=== PATIENT | female | born 1945 | race Caucasian/White ===

== ENCOUNTER 2020-11-02 16:13 | Inpatient (IN) | payer MEDICARE, SELFPAY ==
[2020-11-02 16:15] VITALS: BP 167/88; PULSE 80; RESP 18; TEMP 37.1; O2SAT 95; BMI 24.3
--- NOTE | 2020-11-02 16:22 | EKG12_ITS ---
Test Reason : FALL Blood Pressure : / mmHG Vent. Rate : 071 BPM Atrial Rate : 071 BPM P-R Int : 106 ms QRS Dur : 080 ms QT Int : 432 ms P-R-T Axes : 035 005 027 degrees QTc Int : 469 ms Sinus rhythm with short HI Otherwise normal ECG Confirmed by ANGEL PRICE, NEIL ([id number]), medical transcription editor SERGIO FONTANA ([id number]) on 11/03/2020 1:07:11 PM Referred By: [id number] Confirmed By:NEIL ORTIZ MD
[2020-11-02] MEDS: Ondansetron 4 MG/2 ML Vial IV (16:28)
[2020-11-02] MEDS: HYDROmorphone 1 MG/ML Syringe 0.5 MG IV (16:29)
[2020-11-02] MEDS: 0.9% Normal Saline 1,000 ML 150 ML IV (16:29)
--- NOTE | 2020-11-02 16:31 | ED.VIS.INJ ---
History of Present Illness Chief Complaint: Fall Informant: Patient, Coat Check Attendant Onset: Hours Mechanism/Context: Blunt Injury, Fall, Trip Quality of Pain: Dull, Aching Location: Right groin Current Severity: Mild Maximum Severity: Severe Worsened by: Movement by paramedics or attempt to move left lower extremity Relieved by: Nothing Associated Symptoms: Loss of function, Inability to ambulate. Negative for: Parasthesias, Weakness, Loss of consciousness, Amnesia Narrative: An elderly woman who tripped. She landed on her right side. She complains of right hip pain which she localized to the right groin. She states she bumped her head. She had no loss of conscious. She is not amnestic. She states she was not dazed. She is not on an anticoagulant. Denies double vision, blurred vision or loss of vision. Denies ringing or ears or decreased hearing. Denies blood from her ears. Denies blood from her nose. She denies her teeth not lining up. She denies neck pain. Denies paresthesia, anesthesia motor weakness upper or lower extremity presently her time of the fall. She denies cardiac respiratory symptoms. Denies black or maroon-colored stool. She denies urologic symptoms. Last tetanus is uncertain. Prior similar symptoms: No Recent Illness/Hospitalization: No - Past Medical History (1) History of type 2 diabetes mellitus Status: Acute (2) History of arthritis Status: Acute Past Medical History - Allergies and Home Meds Allergies/Adverse Reactions: Allergies midazolam [From Versed] Allergy (Verified 11/02/20 16:15) Other Penicillins [PCN] Allergy (Verified 11/02/20 16:15) Hives Primary Care Physician: NOT,DEFINED [NON-STAFF] - Prior records reviewed: No Surgical History: noncontributory Lives: Spouse/ Significant Other Smoking Status: Never smoker Alcohol: None Drugs: None Review of Systems General: Denies: Chills, Fever, Malaise, Subjective, Sweats Eyes: Denies: Visual changes - bilaterally, Blurred Vision - bilaterally, Diplopia ENT: Denies: Bilateral ear pain, Rhinorrhea, Sore throat Cardiovascular: Denies: Chest pain, Palpitations Respiratory: Denies: Dyspnea, Cough, Dyspnea on exertion, Orthopnea, Paroxysmal nocturnal dyspnea Gastrointestinal: Denies: Abdominal pain, Nausea, Vomiting, Melena, Hematochezia Genitourinary: Denies: Dysuria, Hematuria, Frequency Musculoskeletal: Reports: Extremity Pain. Denies: Myalgias, Arthralgias, Neck pain, Back pain, Swelling Skin: Denies: Rash, Wounds Neurological: Denies: Headache, Weakness, Parasthesia Endocrine: Denies: Polyuria, Polydipsia Hematologic: Denies: Easy bruising Physical Exam Vital Signs/Narrative: Vital Signs Temp Pulse Resp BP Pulse Ox 11/02/20 16:15 98.8 F 80 18 167/88 H 95 Inital Vital Signs reviewed: Yes General: Well nourished, Well developed Head: Normocephalic, Atraumatic, - - There is no clinical findings of basilar skull fracture.. Negative for: Trauma, Tenderness Eyes: Perrl, EOMI, - - There is no subconjunctival hemorrhage.. Negative for: Pale conjunctiva, Scleral icterus ENT: TM's clear, No hemotympanum or drainage, No trauma. Negative for: Hemotympanum, Otorrhea, Nasal trauma, Nasal septal hematoma Neck: Nontender, Full ROM. Negative for: Spinal Tenderness, Paraspinal Tenderness Cardiovascular: Regular rate, Regular rhythm, No murmurs, Normal S1, Normal S2 Respiratory: No distress, CTA bilaterally, Chest nontender Abdomen: Soft, Nontender, Nondistended, Normal bowel sounds Rectal: Deferred Back: Nontender. Negative for: CVA Tenderness - Right, CVA Tenderness - Left Skin: Normal color, No rash. Negative for: Cyanosis, Diaphoresis, Jaundice Neurological: Alert, Oriented x3, Cranial nerves II-XII grossly intact, Normal Strength, Normal Sensation. Negative for: Normal Gait Psychological: Normal affect - Glascow Coma Scale Eye Opening: Spontaneous Motor: Obeys Commands Verbal: Oriented Coma Scale Total: 15 Diagnostic/Tx/Re-eval Chest X-Ray - ED: Read by ED Physician, - - Single portable chest x-ray reveals chronic changes. There is slight rotation. Cardiac silhouette is normal. There is no effusion, hemothorax, pneumothorax or fractured ribs. Three-view x-ray of the hip interpreted by me reveals an intertrochanteric fracture that is minimally displaced. Impressions Chest X-Ray 11/02/20 16:46 IMPRESSION: Chronic interstitial changes, no superimposed acute pulmonary process Electronically Signed: Evangelista Thomas MD at 17:14 EDT , Service support , Hip/Pelvis X-Ray 11/02/20 16:46 IMPRESSION: Acute, minimally displaced intertrochanteric fracture of the right femur. Orthopedic surgery consultation recommended Electronically Signed: Evangelista Thomas MD at 17:15 EDT , Service support , 11/02/20 16:46 Chest 1 View (Portable) [RAD] Stat HIP, UNI W/ Pelvis 2-3 Views [RAD] Stat Laboratory Results 11/02/20 11/02/20 16:15 Unknown WBC 9.6 RBC 4.84 Hgb 15.8 H Hct 44.3 MCV 91.5 MCH 32.6 H MCHC 35.7 RDW Std Deviation 40.1 RDW Coeff of Melissa 11.9 Plt Count 214 MPV 11.0 Immature Gran % (Auto) 0.600 Neut % (Auto) 70.2 H Lymph % (Auto) 19.0 [place] % (Auto) 6.9 Eos % (Auto) 2.6 Baso % (Auto) 0.7 Absolute Neuts (auto) 6.7 Absolute Lymphs (auto) 1.82 Nucleated RBC % 0 Sodium 133 L Potassium 3.9 Chloride 98 Carbon Dioxide 28.0 Anion Gap 7 BUN 18 Creatinine 0.72 Estim Creat Clear Calc 38.94 Est GFR (MDRD) Af Amer 103 Est GFR (MDRD) Non-Af 85 BUN/Creatinine Ratio 25.2 H Glucose 438 H Calcium 9.4 - EKG Initial EKG Interpretation: Sinus Rhythm - Rhythm with a ventricular rate of 71. [place] interval is 106 ms which is short. QRS duration 80 ms. QT duration 432 ms. [place] is normal. Other than the short [place] interval the EKG is normal. - Medical Decision Making Medically patient has a right hip fracture. Blood work was obtained to rule out anemia, renal dysfunction and to assess glucose and anion gap. EKG was obtained as well as chest x-ray for preoperative clearance. Patient was informed she will require admission to the hospital. Blood sugar is elevated. Will treat with insulin. Hospitalist and orthopedist on-call were paged for admission. ED Disposition - Plan for ED Patient: Disposition: Acute Care [facility] Diagnosis: Intertrochanteric fracture of right femur, Hyperglycemia due to type 2 diabetes mellitus Referrals: NOT,DEFINED [NON-STAFF] -
--- NOTE | 2020-11-02 16:46 | RAD_ITS ---
STUDY: X-RAY - PELVIS AND RIGHT HIP REASON FOR EXAM: Female, 75 years old. Injury/Pain TECHNIQUE: 4 views of the pelvis and hip. COMPARISON: None. FINDINGS: There is a non-specific bowel gas pattern. Normal visualized soft tissue structures. There is narrowing with cortical sclerosis and osteophyte formation of the sacroiliac joint consistent with degenerative osteoarthritic changes. Normal bilateral superior and inferior pubic rami. Normal pubic symphysis. Normal bilateral ischial tuberosities. There is an acute, minimally displaced, intertrochanteric fracture of the right femur with medial displacement of the lesser trochanter. No dislocation or subluxation of the right hip joint. No significant angulation. Age consistent left hip arthrosis without demonstrated left hip fracture No demonstrated pelvic fracture RAD/HIP, UNI W/ Pelvis 2-3 Views IMPRESSION: Acute, minimally displaced intertrochanteric fracture of the right femur. Orthopedic surgery consultation recommended Electronically Signed: Evangelista Thomas MD at 17:15 EDT , Service support ,
--- NOTE | 2020-11-02 16:46 | RAD_ITS ---
STUDY: X-RAY CHEST REASON FOR EXAM: Female, 75 years old. Pre-op for pelvic surgery TECHNIQUE: Single AP portable view of the chest. COMPARISON: None. FINDINGS: There are interstitial changes of the lungs. There is no demonstrated pleural abnormality. Normal size heart. Normal mediastinum and jamil. Normal visualized pulmonary arteries. Normal visualized aortic arch and descending thoracic aorta. There are diffuse degenerative changes of the visualized thoracic spine. Normal visualized ribs, clavicles, and shoulders. There is no demonstrated abnormality of the visualized soft tissue structures of the upper abdomen. RAD/Chest 1 View (Portable) IMPRESSION: Chronic interstitial changes, no superimposed acute pulmonary process Electronically Signed: Evangelista Thomas MD at 17:14 EDT , Service support ,
[2020-11-02 16:59] LABS: Anion Gap 7 (5-15); BUN 18 mg/dL (7-18); BUN/Creat Ratio 25.2 RATIO (10-20); Calcium,Total 9.4 mg/dL (8.5-10.1); Chloride 98 mmol/L (98-107); Creatinine, Serum 0.72 mg/dL (0.55-1.02); EST Glomerular Filtration Rate 85 mL/min (>60); Est Glom Filt Rate - Afr Amer 103 mL/min (>60); Estimated Creatinine Clearance 38.94 ml/min; Glucose 438 mg/dL (74-106); Potassium 3.9 mmol/L (3.5-5.1); Sodium Level 133 mmol/L (136-145)
[2020-11-02 17:02] LABS: Absolute Lymphocyte Count 1.82 X10^3/uL (0.83-4.51); Absolute Neutrophil Count 6.7 X10^3/uL (2.0-7.7); Basophil# 0.07 X10^3/uL; Basophil% 0.7 % (0-1); Eosinophil# 0.25 X10^3/uL; Eosinophils% 2.6 % (0-5); Hematocrit 44.3 % (37-47); Hemoglobin 15.8 g/dL (12.0-15.0); Lymphocyte # 1.82 X10^3/ul (4.0); Mean Corp Hgb Conc 35.7 g/dL (32-36); Mean Corpuscular Hgb 32.6 pg (27.0-32.0); Mean Corpuscular Volume 91.5 fL (81-99); Monocyte# 0.66 X10^3/uL; Monocyte% 6.9 % (0-10); NRBC Flagged by Analyzer 0 % (0-5); Neutrophil # 6.72 X10^3/uL (2.7-7.7); Neutrophil % 70.2 % (47-70); Platelet Count 214 K/mm3 (150-450); RBC Distribution Width CV 11.9 % (11.6-14.6); RBC Distribution Width SD 40.1 fl (35.1-43.9); Red Blood Count 4.84 M/mm3 (4.2-5.4); White Blood Count 9.6 K/mm3 (4.4-11.0)
[2020-11-02] MEDS: Insulin Lispro 100 UNIT/ML INSULN.PEN 8 UNIT SC (17:44)
--- NOTE | 2020-11-02 17:44 | NURSING ---
NO OLD EKGS
--- NOTE | 2020-11-02 17:46 | NURSING ---
MED SURG MARVIN RT INTERTROCHANTERIC FX, HYPERGLYCEMIA
[2020-11-02 17:56] VITALS: BP 146/80; PULSE 76; RESP 20; TEMP 36.4; O2SAT 95
--- NOTE | 2020-11-02 17:59 | PCM.HP.STD ---
<Komal Kim - Last Filed: 11/02/20 17:59> Problem List (1) Intertrochanteric fracture of right femur Status: Acute (2) Hyperglycemia due to type 2 diabetes mellitus Status: Chronic (3) History of arthritis Status: Acute History of Present Illness Date of Admission: 11/02/20 Chief Complaint: Right intertrochanter fracture The patient is a 75 year old F who presents today following a fall. Patient states that she was walking into the restroom at a store and turned to close the door and tripped over her own feet and fell. Patient states she believes that she hit her head on the wall however there are no abnormalities noted to scalp. Patient states she did not lose consciousness was not dizzy or lightheaded. Patient has a medical history of arthritis and uncontrolled diabetes mellitus type 2. Patient states that she was prescribed Metformin for her diabetes however it upsets her stomach and so she has not been taking it. Glucose 438 on arrival to ER. Labs otherwise unremarkable. Chest x-ray no acute findings, hip pelvis x-ray shows acute minimally displaced intertrochanteric fracture of the right femur. Past Medical History Past Medical History (Chronic Problems): Chronic Problems Type 2 diabetes mellitus (Chronic) Arthritis (Chronic) Allergies midazolam [From Versed] Allergy (Verified 11/02/20 16:15) Other Penicillins [PCN] Allergy (Verified 11/02/20 16:15) Hives Home Medications: Ambulatory Orders Medication Instructions Recorded Acetaminophen [Tylenol Extra 1,000 mg PO Q6H PRN PRN 11/02/20 Strength] Aspirin E.C. [Ecotrin] 81 mg PO DAILY@0800 11/02/20 Celecoxib [Celebrex] 200 mg PO DAILY PRN 11/02/20 Surgical History: cholecystectomy, hysterectomy, - - Bladder suspension Psychiatric History: No pertinent psych hx ARTISTIC DIRECTOR History: No pertinent ARTISTIC DIRECTOR history Lives: Spouse/ Significant Other Smoking Status: Never smoker Alcohol: None Drugs: None - *Family History Maternal History Items: Heart Disease, Hypertension Paternal History Items: Heart Disease, Hypertension Review of Systems Constitutional: Denies: Chills, Fever, Weight Change HEENT: Denies: Head Aches, Sinus Congestion, Sinus Drainage Cardiovascular: Denies: Chest Pain, Palpitations Respiratory: Denies: Cough, Shortness of breath at rest, Sputum production Gastrointestinal: Denies: Abdominal Pain, Nausea, Vomiting Genitourinary: Denies: Dysuria Musculoskeletal: Reports: Joint Pain, Joint Tenderness Skin: Denies: Rash, Wounds Neurological: Denies: Numbness, Tingling, Focal weakness Psychiatric: Denies: Anxiety, Depression, Homicidal Ideations, Suicidal Ideations Hematologic/ Lymphatic: Denies: Easy Bruising, Easy Bleeding VTE Information - Inpt Only VTE Present on Admission: No VTE Mechan Device Prophylaxis: SCD's VTE Pharm Prophylaxis ordered?: No - Physical Exam Vitals/I&O's: Vital Signs Temp Pulse Resp BP Pulse Ox 97.6 F L 76 20 H 146/80 H 95 11/02/20 17:56 11/02/20 17:56 11/02/20 17:56 11/02/20 17:56 11/02/20 17:56 Oxygen Delivery Method Room Air Weight: 108 lb 8.725 oz Body Mass Index (BMI) 24.3 General: Alert, Oriented x3, Cooperative HEENT: Atraumatic, PERRLA, EOMI, Normocephalic Neck: Supple, No JVD, Negative Carotid Bruits Lungs: Clear to auscultation, Normal air movement Cardiovascular: Regular rate, Regular Rhythm, Normal S1, Normal S2, No murmurs Abdomen: Bowel Sounds Present, Soft, Non Tender Extremities: Capillary Refill Less than 3 Seconds, Edema, Peripheral Pulses Normal, - - Right leg noted to be externally rotated Skin: No rashes, No breakdown Musculoskeletal: Tenderness - To right hip and leg Neurological: Cranial nerves II-XII grossly intact Psych/Mental Status: Normal Affect, Appropriate Laboratory Results 11/02/20 16:10: Blood Type Pending, Antibody Screen Pending 11/02/20 16:15: WBC 9.6, RBC 4.84, Hgb 15.8 H, Hct 44.3, MCV 91.5, MCH 32.6 H, MCHC 35.7, RDW Std Deviation 40.1, RDW Coeff of Melissa 11.9, Plt Count 214, MPV 11.0, Immature Gran % (Auto) 0.600, Neut % (Auto) 70.2 H, Lymph % (Auto) 19.0, [place] % (Auto) 6.9, Eos % (Auto) 2.6, Baso % (Auto) 0.7, Absolute Neuts (auto) 6.7, Absolute Lymphs (auto) 1.82, Nucleated RBC % 0 11/02/20 : Sodium 133 L, Potassium 3.9, Chloride 98, Carbon Dioxide 28.0, Anion Gap 7, BUN 18, Creatinine 0.72, Estim Creat Clear Calc 38.94, Est GFR (MDRD) Af Amer 103, Est GFR (MDRD) Non-Af 85, BUN/Creatinine Ratio 25.2 H, Glucose 438 H, Calcium 9.4 Current Medications Sodium Chloride () 1,000 mls @ 150 mls/hr IV .Q6H40M [facility] Last Admin: 11/02/20 16:29 Dose: 150 mls/hr Documented by: Assessment/Plan All Active Problems Intertrochanteric fracture of right femur (Acute) 1. Intertrochanteric fracture of right femur -Admit to MedSur -Consult orthopedics -PT and OT to eval and treat -Complete bedrest -Insert Covarrubias catheter -SCDs -Tapered pain medication regimen ordered -Vital signs per protocol 2. Hyperglycemia due to type 2 diabetes mellitus -AC at bedtime blood sugars with sliding scale insulin ordered -Lantus 6 units twice daily ordered -Check hemoglobin A1c -Patient noncompliant with Metformin due to and tolerated side effects of gastric upset 3. History of arthritis -Hold Celebrex pending orthopedic consult DVT prophylaxis-SCDs and subcu Lovenox This patient was seen by BUFFY McgowanC under the supervision of Dr. Bernard. <Sharron Bernard - Last Filed: 11/02/20 18:29> History of Present Illness The patient is a 75 year old F [] Past Medical History Allergies midazolam [From Versed] Allergy (Verified 11/02/20 16:15) Other Penicillins [PCN] Allergy (Verified 11/02/20 16:15) Hives - Physical Exam Vitals/I&O's: Vital Signs Temp Pulse Resp BP Pulse Ox 97.6 F L 76 20 H 146/80 H 95 11/02/20 17:56 11/02/20 17:56 11/02/20 17:56 11/02/20 17:56 11/02/20 17:56 Oxygen Delivery Method Room Air Weight: 108 lb 8.725 oz Body Mass Index (BMI) 24.3 Laboratory Results 11/02/20 16:10: Blood Type B NEGATIVE, Antibody Screen NEGATIVE 11/02/20 16:15: WBC 9.6, RBC 4.84, Hgb 15.8 H, Hct 44.3, MCV 91.5, MCH 32.6 H, MCHC 35.7, RDW Std Deviation 40.1, RDW Coeff of Melissa 11.9, Plt Count 214, MPV 11.0, Immature Gran % (Auto) 0.600, Neut % (Auto) 70.2 H, Lymph % (Auto) 19.0, [place] % (Auto) 6.9, Eos % (Auto) 2.6, Baso % (Auto) 0.7, Absolute Neuts (auto) 6.7, Absolute Lymphs (auto) 1.82, Nucleated RBC % 0 11/02/20 : Sodium 133 L, Potassium 3.9, Chloride 98, Carbon Dioxide 28.0, Anion Gap 7, BUN 18, Creatinine 0.72, Estim Creat Clear Calc 38.94, Est GFR (MDRD) Af Amer 103, Est GFR (MDRD) Non-Af 85, BUN/Creatinine Ratio 25.2 H, Glucose 438 H, Calcium 9.4 Current Medications Sodium Chloride () 1,000 mls @ 150 mls/hr IV .Q6H40M [facility] Last Admin: 11/02/20 16:29 Dose: 150 mls/hr Documented by: Assessment/Plan Hospitalist note: I am seeing this patient in conjunction with Komal Kim. I independently seen and examined the patient. History and physical, laboratory data and imaging studies reviewed and I concur with above admission and treatment plan. Patient presented to the emergency room because of fall and right hip pain. This afternoon, patient was walking, lost her balance and she fell to the right side. Immediately, she started having right hip pain, sharp pain, 10 out of 10 in severity, aggravated by any movement and without associated symptoms. She will history of type 2 diabetes mellitus and she is supposed to be on Metformin but she is not taking it for long time. In the emergency department, her blood pressure was elevated, other vital signs were stable. Routine blood work was remarkable for sodium of 133, blood glucose was 438. Chest x-ray showed no acute findings. X-ray of the pelvis and right hip revealed acute minimally displaced intertrochanteric fracture of the right femur. Patient is being admitted for right intertrochanteric femur fracture for surgical repair. - Physical Exam General: Alert, Oriented x3, Cooperative, No apparent distress. HEENT: Atraumatic, PERRLA, EOMI. Neck: Supple, No JVD, Negative Carotid Bruits, Trachea Midline, Thyroid Normal. Lungs: Clear to auscultation, Normal air movement, No rhonchi, No wheeze, No rales. Cardiovascular: Regular rate, Regular Rhythm, Normal S1, Normal S2, PMI Normal. Abdomen: Bowel Sounds Present, Soft, Non Tender, Non-Distended, No Hepato-splenomegaly. Extremities: No clubbing, No cyanosis, No edema Skin: No rashes, No breakdown Neurological: Cranial nerves are intact, neuro grossly intact Assessment and plan: #1 acute traumatic minimally displaced intertrochanteric right femoral fracture: Due to mechanical fall. [facility], complete bedrest, insert Covarrubias catheter, IV morphine as needed for pain, OxyIR as needed for pain, IV fluids, Tylenol as needed, Zofran as needed, orthopedic surgery consult, repeat CBC and BMP tomorrow morning, PT OT evaluation and treatment when appropriate. #2 preoperative evaluation: 75 years old with history of type 2 diabetes mellitus uncontrolled, not compliant with medications. Chest x-ray reviewed, was unremarkable. EKG for preoperative evaluation ordered. Based on ACS NSQIP surgical risk calculator, her risk of serious complications is below average and her predicted length of stay in the hospital is 4 days. Plan to do preoperative EKG and if it is unremarkable, we can proceed with surgery. #3 uncontrolled type 2 diabetes mellitus: Patient was diagnosed with diabetes almost 10 years ago, supposed to be on Metformin. She is not taking Metformin because of side effects including stomach upset. On admission, blood glucose was 438, no evidence of DKA. Plan: ADA diet, Accu-Cheks every 6 hours, start Lantus 6 inch twice daily, insulin sliding scale, check hemoglobin A1c. This note was generated with [employer] dictation software. It may contain incorrect words, spelling, and punctuation that were not noted in checking the note before signing. Inpatient E&M: 87704 Init Hosp L3
[2020-11-02 18:31] VITALS: BMI 23.9; BMI 24.0
--- NOTE | 2020-11-02 18:31 | EKG12_ITS ---
Test Reason : PRE OP Blood Pressure : / mmHG Vent. Rate : 088 BPM Atrial Rate : 088 BPM P-R Int : 138 ms QRS Dur : 082 ms QT Int : 398 ms P-R-T Axes : 056 -16 -06 degrees QTc Int : 481 ms Normal sinus rhythm Inferior infarct , age undetermined Abnormal ECG Confirmed by BARB PRICE, TIMOTHY ([id number]), content editor SERGIO FONTANA ([id number]) on 11/04/2020 11:25:20 AM Referred By: MARVIN Confirmed By:TIMOTHY DAY MD
[2020-11-02 18:48] VITALS: BP 151/64; PULSE 88; RESP 18; TEMP 37.2; O2SAT 96
[2020-11-02] MEDS: 0.9% Saline Lock 10 ML Syringe IV (19:00)
[2020-11-02] MEDS: Morphine 2 MG/ML Syringe IV (19:00)
[2020-11-02] MEDS: Insulin Lispro 100 UNIT/ML INSULN.PEN SC ×2 (19:07→22:57)
[2020-11-02 19:11] LABS: Bedside Glucose 368 mg/dL (70-110)
[2020-11-02 20:16] VITALS: BP 141/62; PULSE 87; RESP 18; TEMP 36.7; O2SAT 96
[2020-11-02 20:22] LABS: Hemoglobin A1c 11.3 % (3.8-5.6)
--- NOTE | 2020-11-02 20:32 | NURSING ---
Dr. Castañeda called the floor earlier and asked if this pt was here. I advised him that she was in room 317. He asked to speak to the nurse taking care of her. By the time I located the nurse, he hung up. Consult completed based on this conversation.
[2020-11-02 22:55] LABS: Bedside Glucose 277 mg/dL (70-110)
[2020-11-02] MEDS: oxyCODONE 5 MG Tablet PO (22:56)
[2020-11-03] VITALS (15 sets, daily range): BP systolic 127–171; BP diastolic 62–92; PULSE 68–106; RESP 16–18; TEMP 36.6–37; O2SAT 92–100; BMI 23.9; BMI 24.0
[2020-11-03] MEDS: Morphine 2 MG/ML Syringe IV (00:41)
[2020-11-03] MEDS: HYDROmorphone 1 MG/ML Syringe IV ×4 (02:48→22:19)
[2020-11-03] MEDS: 0.9% Normal Saline 1,000 ML 75 ML IV ×2 (04:00→16:58)
[2020-11-03] MEDS: Insulin Lispro 100 UNIT/ML INSULN.PEN SC ×3 (05:35→18:17)
[2020-11-03 06:45] LABS: Bedside Glucose 236 mg/dL (70-110)
[2020-11-03 06:45] LABS: Absolute Lymphocyte Count 1.55 X10^3/uL (0.83-4.51); Basophil# 0.06 X10^3/uL; Basophil% 0.6 % (0-1); Eosinophil# 0.17 X10^3/uL; Eosinophils% 1.6 % (0-5); Hematocrit 38.1 % (37-47); Hemoglobin 13.1 g/dL (12.0-15.0); Lymphocyte # 1.55 X10^3/ul (4.0); Lymphocyte % 14.5 % (19-41); Mean Corp Hgb Conc 34.4 g/dL (32-36); Mean Corpuscular Hgb 31.8 pg (27.0-32.0); Mean Corpuscular Volume 92.5 fL (81-99); Mean Platelet Vol. 10.2 fl (6.2-12.0); Monocyte# 0.85 X10^3/uL; NRBC Flagged by Analyzer 0 % (0-5); Neutrophil % 74.9 % (47-70); Platelet Count 146 K/mm3 (150-450); RBC Distribution Width SD 40.9 fl (35.1-43.9); Red Blood Count 4.12 M/mm3 (4.2-5.4); White Blood Count 10.7 K/mm3 (4.4-11.0)
[2020-11-03 07:08] LABS: Anion Gap 2 (5-15); BUN 15 mg/dL (7-18); BUN/Creat Ratio 31.2 RATIO (10-20); Chloride 106 mmol/L (98-107); Creatinine, Serum 0.48 mg/dL (0.55-1.02); EST Glomerular Filtration Rate 135 mL/min (>60); Est Glom Filt Rate - Afr Amer 163 mL/min (>60); Estimated Creatinine Clearance 38.36 ml/min; Glucose 253 mg/dL (74-106); Potassium 3.8 mmol/L (3.5-5.1); Sodium Level 135 mmol/L (136-145)
--- NOTE | 2020-11-03 07:59 | PCM.CONS.GEN ---
Reason for Consult Date of Consultation: 11/03/20 Reason for Consultation: right intertrochanteric femur fracture History of Present Illness: The patient is a 75 year old F this post ground-level fall 11/02/2020 landing on right side did hit her head. Denies any history of CVA Duran's palsy. She does admit to having recurrent balance problems as of recent. She does not typically use a walker or assistive device. Pain is limited to her right groin. Denies history of foot drop. Past Medical History Past Medical History (Chronic Problems): Chronic Problems Type 2 diabetes mellitus (Chronic) Arthritis (Chronic) Allergies midazolam [From Versed] Allergy (Verified 11/02/20 18:33) shakey, itchy,little dots Penicillins [PCN] Allergy (Verified 11/02/20 16:15) Hives Home Medications: Ambulatory Orders Medication Instructions Recorded Acetaminophen [Tylenol Extra 1,000 mg PO Q6H PRN PRN 11/02/20 Strength] Aspirin E.C. 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 Lives: Spouse/ Significant Other Smoking Status: Never smoker Alcohol: None Drugs: None - *Family History Maternal History Items: Heart Disease, Hypertension Paternal History Items: Heart Disease, Hypertension - Physical Exam Vitals/I&O's: Vital Signs Temp Pulse Resp BP Pulse Ox 98.4 F 85 16 127/72 H 92 11/03/20 07:50 11/03/20 07:50 11/03/20 07:50 11/03/20 07:50 11/03/20 07:50 Oxygen Delivery Method Room Air Weight: 106 lb 14.787 oz Body Mass Index (BMI) 23.9 Intake and Output for Last 24 Hours 11/01/20 11/02/20 11/03/20 23:59 23:59 23:59 Intake Total 1000 / 1000 Output Total 800 / 800 Balance 200 / 200 General: Alert, Oriented x3, Cooperative, No apparent distress HEENT: - - Faint drooping of left eye and left face possible slight deviation of tongue to the right with protrusion Extremities: - - Swelling but no ecchymosis or open wounds to right hip compartments compressible palpable pedal pulses she is unable to see flex the right ankle she is able to wiggle her toes however Laboratory Results 11/02/20 16:10: Blood Type B NEGATIVE, Antibody Screen NEGATIVE 11/02/20 16:15: WBC 9.6, RBC 4.84, Hgb 15.8 H, Hct 44.3, MCV 91.5, MCH 32.6 H, MCHC 35.7, RDW Std Deviation 40.1, RDW Coeff of Melissa 11.9, Plt Count 214, MPV 11.0, Immature Gran % (Auto) 0.600, Neut % (Auto) 70.2 H, Lymph % (Auto) 19.0, [place] % (Auto) 6.9, Eos % (Auto) 2.6, Baso % (Auto) 0.7, Absolute Neuts (auto) 6.7, Absolute Lymphs (auto) 1.82, Nucleated RBC % 0 11/02/20 16:15: Hemoglobin A1c 11.3 H 11/02/20 18:51: POC Glucose 368 H 11/02/20 22:48: POC Glucose 277 H 11/02/20 : Sodium 133 L, Potassium 3.9, Chloride 98, Carbon Dioxide 28.0, Anion Gap 7, BUN 18, Creatinine 0.72, Estim Creat Clear Calc 38.94, Est GFR (MDRD) Af Amer 103, Est GFR (MDRD) Non-Af 85, BUN/Creatinine Ratio 25.2 H, Glucose 438 H, Calcium 9.4 11/03/20 05:34: POC Glucose 236 H 11/03/20 06:35: WBC 10.7, RBC 4.12 L, Hgb 13.1, Hct 38.1, MCV 92.5, MCH 31.8, MCHC 34.4, RDW Std Deviation 40.9, RDW Coeff of Melissa 12.0, Plt Count 146 L, MPV 10.2, Immature Gran % (Auto) 0.400, Neut % (Auto) 74.9 H, Lymph % (Auto) 14.5 L, [place] % (Auto) 8.0, Eos % (Auto) 1.6, Baso % (Auto) 0.6, Absolute Neuts (auto) 8.0 H, Absolute Lymphs (auto) 1.55, Nucleated RBC % 0 11/03/20 06:35: Sodium 135 L, Potassium 3.8, Chloride 106, Carbon Dioxide 27.0, Anion Gap 2 L, BUN 15, Creatinine 0.48 L, Estim Creat Clear Calc 38.36, Est GFR (MDRD) Af Amer 163, Est GFR (MDRD) Non-Af 135, BUN/Creatinine Ratio 31.2 H, Glucose 253 H, Calcium 8.0 L Current Medications Acetaminophen (Acetaminophen 325 Mg Tablet) 650 mg PO Q6H PRN PRN PRN Reason: Pain Score 1-10/Temp > 100.7 F Aspirin (Aspirin E.C. 81 Mg Tablet) 81 mg PO DAILY@0800 [facility] Last Admin: 11/03/20 07:55 Dose: Not Given Documented by: Dextrose (Dextrose 50%-Water 25 Gm/50 Ml Disp.Syrin) 0 gm IV X1 PRN; Protocol PRN Reason: Hypoglycemia Enoxaparin Sodium (Enoxaparin 40 Mg/0.4 Ml Syringe) 40 mg SC DAILY [facility] Last Admin: 11/03/20 07:55 Dose: Not Given Documented by: Glucagon (Glucagon 1 Mg/Ml Syringe) 1 mg IM .X1 PRN PRN Reason: Hypoglycemia Hydralazine HCl (Hydralazine 20 Mg/Ml Vial) 10 mg IV Q6H PRN PRN PRN Reason: for SBP>160 Hydromorphone HCl (Hydromorphone 1 Mg/Ml Syringe) 1 mg IV Q3H PRN PRN PRN Reason: pain 6-10 Last Admin: 11/03/20 05:54 Dose: 1 mg Documented by: Sodium Chloride () 1,000 mls @ 75 mls/hr IV .[id number] [facility] Last Admin: 11/03/20 04:00 Dose: 75 mls/hr Documented by: Insulin Glargine (Insulin Glargine 100 Units/Ml Pen) 6 units SC BID [facility] Last Admin: 11/03/20 07:56 Dose: Not Given Documented by: Insulin Human Lispro (Insulin Lispro 100 Unit/Ml Insuln.Pen) 0 unit SC Q6 [facility]; Protocol Last Admin: 11/03/20 05:35 Dose: 4 units Documented by: Ondansetron HCl (Ondansetron 4 Mg/2 Ml Vial) 4 mg IV Q8H PRN PRN PRN Reason: NAUSEA/VOMITING Oxycodone HCl (Oxycodone 5 Mg Tablet) 5 mg PO Q4H PRN PRN PRN Reason: Pain Score 4-5 Last Admin: 11/02/20 22:56 Dose: 5 mg Documented by: Senna/Docusate Sodium (Senna/Docusate Sodium 1 Tablet) 2 tablet PO BID PRN PRN PRN Reason: Constipation Sodium Chloride (0.9% Saline Lock 10 Ml Syringe) 10 - 40 ml IV UD PRN PRN Reason: SALINE FLUSH Last Admin: 11/02/20 19:00 Dose: 10 ml Documented by: Zolpidem Tartrate (Zolpidem Tartrate 5 Mg Tablet) 5 mg PO QHS PRN PRN PRN Reason: INSOMNIA Assessment/Plan All Active Problems Intertrochanteric fracture of right femur (Acute) Right intertrochanteric femoral neck fracture will require cephalomedullary fixation did discuss this with patient Allergy to penicillin develops rash okay for Ancef on-call to the OR, covid screen Concern for CVA discussed with nursing and Dr. Carroll will await his evaluation Okay to proceed to the OR if medically cleared today otherwise we will proceed tomorrow
--- NOTE | 2020-11-03 08:01 | PN_ITS ---
Subjective: Patient denies any new facial asymmetry. States that she has been unstable for some time and bounces between penn. When she falls, she can fall forward or backwards. Denies tremors. Occasionally, has difficulty speaking loudly. Vitals/I&O's: Vital Signs Temp Pulse Resp BP Pulse Ox 36.9 C 85 16 127/72 H 92 11/03/20 07:50 11/03/20 07:50 11/03/20 07:50 11/03/20 07:50 11/03/20 07:50 Oxygen Delivery Method Room Air Weight: 48.5 kg Body Mass Index (BMI) 23.9 Intake and Output for Last 24 Hours 11/01/20 11/02/20 11/03/20 23:59 23:59 23:59 Intake Total 1000 / 1000 Output Total 800 / 800 Balance 200 / 200 General: Alert, No apparent distress HEENT: Atraumatic, Normocephalic, - - facial asymetry, but able to smile, open and close eyes. masked facies. Impaired vertical saccades. Extremities: No edema, No Calf Tenderness Musculoskeletal: Cachexia, Muscle Wasting Neurological: Cranial nerves II-XII grossly intact, Motor Exam 5/5 strength throughout, Sensory exam intact to light touch and pain Psych/Mental Status: Appropriate, Flat Affect Laboratory Results 11/02/20 16:10: Blood Type B NEGATIVE, Antibody Screen NEGATIVE 11/02/20 16:15: WBC 9.6, RBC 4.84, Hgb 15.8 H, Hct 44.3, MCV 91.5, MCH 32.6 H, MCHC 35.7, RDW Std Deviation 40.1, RDW Coeff of Melissa 11.9, Plt Count 214, MPV 11.0, Immature Gran % (Auto) 0.600, Neut % (Auto) 70.2 H, Lymph % (Auto) 19.0, [place] % (Auto) 6.9, Eos % (Auto) 2.6, Baso % (Auto) 0.7, Absolute Neuts (auto) 6.7, Absolute Lymphs (auto) 1.82, Nucleated RBC % 0 11/02/20 16:15: Hemoglobin A1c 11.3 H 11/02/20 18:51: POC Glucose 368 H 11/02/20 22:48: POC Glucose 277 H 11/02/20 : Sodium 133 L, Potassium 3.9, Chloride 98, Carbon Dioxide 28.0, Anion Gap 7, BUN 18, Creatinine 0.72, Estim Creat Clear Calc 38.94, Est GFR (MDRD) Af Amer 103, Est GFR (MDRD) Non-Af 85, BUN/Creatinine Ratio 25.2 H, Glucose 438 H, Calcium 9.4 11/03/20 05:34: POC Glucose 236 H 11/03/20 06:35: WBC 10.7, RBC 4.12 L, Hgb 13.1, Hct 38.1, MCV 92.5, MCH 31.8, MCHC 34.4, RDW Std Deviation 40.9, RDW Coeff of Melissa 12.0, Plt Count 146 L, MPV 10.2, Immature Gran % (Auto) 0.400, Neut % (Auto) 74.9 H, Lymph % (Auto) 14.5 L, [place]ick[place] % (Auto) 8.0, Eos % (Auto) 1.6, Baso % (Auto) 0.6, Absolute Neuts (auto) 8.0 H, Absolute Lymphs (auto) 1.55, Nucleated RBC % 0 11/03/20 06:35: Sodium 135 L, Potassium 3.8, Chloride 106, Carbon Dioxide 27.0, Anion Gap 2 L, BUN 15, Creatinine 0.48 L, Estim Creat Clear Calc 38.36, Est GFR (MDRD) Af Amer 163, Est GFR (MDRD) Non-Af 135, BUN/Creatinine Ratio 31.2 H, Glucose 253 H, Calcium 8.0 L Current Medications Acetaminophen (Acetaminophen 325 Mg Tablet) 650 mg PO Q6H PRN PRN PRN Reason: Pain Score 1-10/Temp > 100.7 F Aspirin (Aspirin E.C. 81 Mg Tablet) 81 mg PO DAILY@0800 [facility] Last Admin: 11/03/20 07:55 Dose: Not Given Documented by: Dextrose (Dextrose 50%-Water 25 Gm/50 Ml Disp.Syrin) 0 gm IV X1 PRN; Protocol PRN Reason: Hypoglycemia Enoxaparin Sodium (Enoxaparin 40 Mg/0.4 Ml Syringe) 40 mg SC DAILY [facility] Last Admin: 11/03/20 07:55 Dose: Not Given Documented by: Glucagon (Glucagon 1 Mg/Ml Syringe) 1 mg IM .X1 PRN PRN Reason: Hypoglycemia Hydralazine HCl (Hydralazine 20 Mg/Ml Vial) 10 mg IV Q6H PRN PRN PRN Reason: for SBP>160 Hydromorphone HCl (Hydromorphone 1 Mg/Ml Syringe) 1 mg IV Q3H PRN PRN PRN Reason: pain 6-10 Last Admin: 11/03/20 05:54 Dose: 1 mg Documented by: Sodium Chloride () 1,000 mls @ 75 mls/hr IV .[id number] [facility] Last Admin: 11/03/20 04:00 Dose: 75 mls/hr Documented by: Insulin Glargine (Insulin Glargine 100 Units/Ml Pen) 6 units SC BID [facility] Last Admin: 11/03/20 07:56 Dose: Not Given Documented by: Insulin Human Lispro (Insulin Lispro 100 Unit/Ml Insuln.Pen) 0 unit SC Q6 [facility]; Protocol Last Admin: 11/03/20 05:35 Dose: 4 units Documented by: Ondansetron HCl (Ondansetron 4 Mg/2 Ml Vial) 4 mg IV Q8H PRN PRN PRN Reason: NAUSEA/VOMITING Oxycodone HCl (Oxycodone 5 Mg Tablet) 5 mg PO Q4H PRN PRN PRN Reason: Pain Score 4-5 Last Admin: 11/02/20 22:56 Dose: 5 mg Documented by: Senna/Docusate Sodium (Senna/Docusate Sodium 1 Tablet) 2 tablet PO BID PRN PRN PRN Reason: Constipation Sodium Chloride (0.9% Saline Lock 10 Ml Syringe) 10 - 40 ml IV UD PRN PRN Reason: SALINE FLUSH Last Admin: 11/02/20 19:00 Dose: 10 ml Documented by: Zolpidem Tartrate (Zolpidem Tartrate 5 Mg Tablet) 5 mg PO QHS PRN PRN PRN Reason: INSOMNIA STROKE Vital Signs/Narrative: Vital Signs Temp Pulse Resp BP Pulse Ox 11/03/20 07:50 36.9 C 85 16 127/72 H 92 11/03/20 05:57 36.6 C 84 16 154/78 H 96 Medical Necessity - Tobacco Use Smoking Status: Never smoker Assessment/Plan All Active Problems Intertrochanteric fracture of right femur (Acute) 1. facial asymmetry: patient denies new complaints. I do not suspect a stroke. This is chronic and likely more pronounced given masked facies. no stroke work up needed at this time. 2. right intertronchanteric fracture plan for OR today at 1330 orthopaedics on consult 3. 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 Discussed with the patient who said her mother had Parkinson's disease. 4. DM2 uncontrolled A1c 11.3 insulin glargine held this AM in anticipation for surgery this afternoon no evidence of DKA at this this time. will need insulin upon discharge 5. VTE prophylaxis: SCDs for now. 6. protein malnutrition suspect moderate to severe check albumin consult nutrition for recs Inpatient E&M: [id number] Subs Hosp L3
[2020-11-03] MEDS: Ondansetron 4 MG/2 ML Vial IV (11:01)
[2020-11-03 11:30] LABS: Bedside Glucose 250 mg/dL (70-110)
--- NOTE | 2020-11-03 11:46 | CASEMGMT ---
Social Work Assessment Referral Date: 11/03/2020 Date of Assessment: 11/03/2020 Reason for consult: Hip fracture, possible SNF placement Informant: PARUL Personal Status: SW met with pt to complete initial assessment. Pt is alert and orientated, answers questions appropriately. Living Arrangements: Pt states she lives with her of 52 years in a two story home with first floor arrangement with three steps to enter the home. DME: Pt states she probably has a cane somewhere. Pt states she doesn't normally wear oxygen at home. ADLs: Pt states she was previously independent with ADLs, states she doesn't drive. Transportation: Pt states her provides transportation. PCP: Simon Jade at [facility] Pharmacy: [facility] in [place] at [facility] Substance Abuse Hx: Pt denied Mental Health Hx: Pt denied HHC: Pt states about 20 years ago pt's had heart surgery and they had HHC, pt unable to recall name of HHC agency. SNF: Pt denied Pt states she was in [facility] visiting and driving around when she went to the [facility] to use their bathroom and pt fell while trying to lock the door. SW spoke with pt regarding discharge plans. Pt states she prefers to return home at discharge. SW informed pt that after pt has surgery, PT/OT will work with pt and make recommendations. Patient was provided a list of SNF providers including quality and resource use data and consistent with the patient?s preferred geographic region, medical needs, and insurance network. Pt was provided [facility] SNF list and [facility] SNF list as pt is from [facility]. Plan: TBD pending surgery and PT/OT Brenna Fernández MARKET RESEARCH COORDINATOR, JUMP ROLL OPERATOR
--- NOTE | 2020-11-03 13:30 | NURSING ---
pt to surgery
--- NOTE | 2020-11-03 14:27 | NT.THERAPY_ITS ---
Nutrition Therapy Report - History Nutrition Services has been consulted to:: Manage nutrient details of diet order Current diet / nutrition support order:: NPO for surgery; was 1800 calorie/consistent carbohydrate - Anthropometric Measurements Height:: 4 ft 8 in Weight:: 48.5 kg Body Mass Index (BMI):: 23.9 - Relevant Labs Relevant Labs:: RBC 4.12 M/mm3 (4.2-5.4) L 11/03/20 06:35 Hgb 15.8 g/dL (12.0-15.0) H 11/02/20 16:15 MCH 32.6 pg (27.0-32.0) H 11/02/20 16:15 Plt Count 146 K/mm3 (150-450) L 11/03/20 06:35 Neut % (Auto) 74.9 % (47-70) H 11/03/20 06:35 Lymph % (Auto) 14.5 % (19-41) L 11/03/20 06:35 Absolute Neuts (auto) 8.0 X10^3/uL (2.0-7.7) H 11/03/20 06:35 Sodium 135 mmol/L (136-145) L 11/03/20 06:35 Anion Gap 2 (5-15) L 11/03/20 06:35 Creatinine 0.48 mg/dL (0.55-1.02) L 11/03/20 06:35 BUN/Creatinine Ratio 31.2 RATIO (10-20) H 11/03/20 06:35 Glucose 253 mg/dL (74-106) H 11/03/20 06:35 Hemoglobin A1c 11.3 % (3.8-5.6) H 11/02/20 16:15 Calcium 8.0 mg/dL (8.5-10.1) L 11/03/20 06:35 - Assessment Food / Nutrition-Related History:: Pt reports UBW~105 lbs and denies recent wt loss/gain; wt appears stable however, with poor ongoing glycemic control due suspect unintentional wt loss--unable to quantify since pt denies. Pt aware of high blood glucose levels and admits to not monitoring and stopped taking oral hypoglycemic meds a long time ago because they give her stomach upset. 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 When offered diet education pt replied I know what to do and denies need for teching. PO/brittany adequate since admit & NPO for surgery at this time. - Nutrition Diagnosis Problem / Etiology / Signs & Symptoms (PES):: Altered nutrition related lab values related to endocrine dysfunction/noncompliant DMII as evidenced by HgbA1C 11.3% and blood glucose 253, 236. Evidence of Malnutrition Exists:: No - Nutrition Intervention Nutrition Prescription:: Estimated nutition needs~1294-1159 kcal (29 kcal/Kg) and ~50-60 gm pro (1-1.2 gm pro/Kg) per day. Estimated fluid needs~7609-7610 ml/day (33 ml/Kg). - Food / Nutrient Delivery Interventions Summary of nutrition intervention:: Advance diet post-op to carbohydrate- controlled diet without caloric restriction. Will provide glucerna shake as needed post-op. Will provide diet education as pt willing to receive; currently resistant and disinterested. Pt would greatly benefit from referral to [facility] when ready for lifestyle change. Nutrition education provided?: No - pt states I know what to do and denies need - MNT Monitoring MNT Follow-up in:: 3-5 days
--- NOTE | 2020-11-03 14:28 | RAD_ITS ---
STUDY: X-RAY - PELVIS AND RIGHT HIP REASON FOR EXAM: Female, 75 years old. TROCHANTERIC FIXATION NAIL TECHNIQUE: 5 intraoperative views of the pelvis and hip. COMPARISON: None. FINDINGS: 5 limited intraoperative films were performed as the patient has undergone intramedullary stabilization of an intertrochanteric fracture of the right femur. Alignment at the fracture site is anatomic. No intraoperative complications noted. Follow-up recommended to ensure complete osseous union RAD/Hip Min 2 Views (Portable) IMPRESSION: Intraoperative films show anatomic alignment of the previously described intertrochanteric fracture after surgical reduction Electronically Signed: Evangelista Thomas MD at 17:03 EDT , Service support ,
[2020-11-03] MEDS: Cefazolin 2 GM in 0.9% Normal Saline 100 ML IV (14:45)
--- NOTE | 2020-11-03 14:57 | CHAPLAIN ---
Type of Pastoral Visit _x__ Initial Visit ___ Follow-up Visit ___ On-call Visit ___ General Patient Visit ___ Spiritual Assessment ___ Family Conference ___ Bereavement ___ Rapid Response ___ Code Blue ___ Other (describe below) Pastoral Care Referral From _x__ Patient ___ Family ___ Nurse ___ Physician ___ Riveting Machine Operator Tape Control ___ Precision Aircraft Structure Assembler ___ Other (describe below) Sacrament/Intervention _x__ Active listening ___ Anointing ___ Sabianism ___ Bereavement ___ Communion ___ Dayanara exploration ___ ___ Life review _x__ Prayer ___ Reconciliation ___ Sacrament of Sick _x__ Supportive presence ___ Wedding ___ Other (describe below) Pastoral Comments met with patient, her spouse, and her daughter prior to her surgery for prayer support
[2020-11-03] MEDS: Lactated Ringers 1,000 ML 100 ML IV (15:00)
[2020-11-03] MEDS: Bupiv/Epi 0.25% 30 ML Vial (16:00)
--- NOTE | 2020-11-03 16:23 | PCM.OPRPT ---
Report of Operation Date of Procedure: 11/03/20 Description of Surgical Findings:: Preoperative diagnosis: [Right] hip intertrochanteric femur fracture Postoperative diagnosis: Same Procedure: Cephalo-medullary fixation [right] hip Implants: Synthes intermediate length nail 125 deg [11] mm diameter 85 mm helical blade [36] mm screw Anesthesia: [General] EBL: 50 Complications: None Condition: Stable to PACU Indication for procedure: 75-year-old female patient with [ground-level fall] sustaining injury to hip. Fracture demonstrated [intertrochanteric femur fracture pattern.] risk benefits and alternatives were reviewed including risk of bleeding infection nerve, artery, bone, tissue damage, blood clot need for further surgery and continued pain. Procedure: Patient met in the preoperative holding area once again the operative extremity was identified by both patient and physician and was marked. Patient was met by anesthesia and IV was started . patient was brought back to the to the operating room anesthesia was started. Patient was then positioned on the fracture table all bony prominences were well-padded. patient was then positioned with abduction internal rotation and traction and fluoroscopy was brought in to ensure that an adequate reduction could be performed. Patient was then prepped and draped in usual sterile fashion and timeout was called to ensure the proper patient procedure and extremity were being contemplated. Fluoroscopy was used to basim the tip of the greater trochanter and a 3 fingerbreadth incision was made 2 finger breaths proximal to the tip of the greater trochanter. Was carried carried down through the skin and subcutaneous tissue as well as the gluteal fascia. Guidepin was then inserted through the tip of the greater trochanter directed towards the level of lesser trochanter this was checked in both AP and lateral projections. An opening reamer was performed. Following this was the insertion of the nail the appropriate height jig was used and a triple trocar sleeve was advanced to the skin and a stab incision was made at the trocar was inserted to the level of the bone and a guidepin was placed into the femoral neck and head checked on both AP and lateral projections. This was then measured and appropriately sized helical blade was inserted the nail was locked proximally the fracture was compressed and a locking screw was placed distally the same incision was extended slightly distally to allow the insertion of the trocar for the transverse screw. This was then drilled and measured under fluoroscopy and the appropriate size screw was inserted. Final AP and lateral projections were saved to the PACS system of the entire construct the wounds were thoroughly irrigated the fascia was closed with #1 [id number] Vicryls followed by 2-0 Vicryl in the subcutaneous tissues followed by padmini in the skin. 0.5% Marcaine with epinephrine was injected into the subcutaneous tissues dressing was applied form of Xeroform 4 x 4 ABD and Ioban tape. Patient tolerated procedure well there is no intraoperative complications and was brought back to the PACU in stable condition.
[2020-11-03 16:45] LABS: Bedside Glucose 243 mg/dL (70-110)
[2020-11-03 18:26] LABS: Bedside Glucose 273 mg/dL (70-110)
[2020-11-03] MEDS: oxyCODONE 5 MG Tablet PO (20:01)
[2020-11-03] MEDS: Acetaminophen 500 MG Tablet 1000 MG PO (22:20)
[2020-11-03] MEDS: Senna/Docusate Sodium 1 Tablet 2 TABLET PO (22:20)
[2020-11-03 22:21] LABS: Bedside Glucose 261 mg/dL (70-110)
[2020-11-03] MEDS: Cefazolin 1 GM/50 ML BAG IV (22:28)
[2020-11-04] VITALS (22 sets, daily range): BP systolic 90–132; BP diastolic 48–88; PULSE 79–199; RESP 13–21; TEMP 36.8–37.3; O2SAT 91–99; BMI 24.0
[2020-11-04] MEDS: Insulin Lispro 100 UNIT/ML INSULN.PEN SC ×5 (00:03→21:32)
[2020-11-04 00:11] LABS: Bedside Glucose 226 mg/dL (70-110)
[2020-11-04] MEDS: oxyCODONE 5 MG Tablet PO ×2 (02:06→09:07)
[2020-11-04] MEDS: HYDROmorphone 1 MG/ML Syringe IV ×3 (04:40→20:31)
[2020-11-04] MEDS: Acetaminophen 500 MG Tablet 1000 MG PO ×3 (05:56→21:29)
[2020-11-04 06:01] LABS: Absolute Lymphocyte Count 1.59 X10^3/uL (0.83-4.51); Absolute Neutrophil Count 10.7 X10^3/uL (2.0-7.7); Basophil# 0.06 X10^3/uL; Basophil% 0.4 % (0-1); Eosinophil# 0.13 X10^3/uL; Eosinophils% 0.9 % (0-5); Hematocrit 30.9 % (37-47); Hemoglobin 10.8 g/dL (12.0-15.0); Lymphocyte # 1.59 X10^3/ul (0.83-4.51); Lymphocyte % 11.6 % (19-41); Mean Corpuscular Hgb 33.1 pg (27.0-32.0); Mean Corpuscular Volume 94.8 fL (81-99); Mean Platelet Vol. 10.5 fl (6.2-12.0); Monocyte# 1.21 X10^3/uL; Monocyte% 8.8 % (0-10); NRBC Flagged by Analyzer 0 % (0-5); Neutrophil # 10.69 X10^3/uL (2.7-7.7); Neutrophil % 77.9 % (47-70); Platelet Count 161 K/mm3 (150-450); RBC Distribution Width CV 12.1 % (11.6-14.6); RBC Distribution Width SD 42.3 fl (35.1-43.9); Red Blood Count 3.26 M/mm3 (4.2-5.4); White Blood Count 13.7 K/mm3 (4.4-11.0)
[2020-11-04 06:10] LABS: Bedside Glucose 168 mg/dL (70-110)
[2020-11-04] MEDS: Cefazolin 1 GM/50 ML BAG IV ×2 (06:21→14:20)
[2020-11-04 06:31] LABS: ALB/GLOB Ratio 0.9 RATIO (0.9-2.4); AST(SGOT) 19 U/L (15-37); Alanine Aminotransfer ALT/SGPT 18 U/L (13-56); Albumin, Serum 2.4 g/dL (3.2-5.0); Alkaline Phosphatase 84 U/L (45-117); Anion Gap 6 (5-15); BUN 9 mg/dL (7-18); BUN/Creat Ratio 21.1 RATIO (10-20); Calcium,Total 7.7 mg/dL (8.5-10.1); Chloride 103 mmol/L (98-107); Creatinine, Serum 0.43 mg/dL (0.55-1.02); EST Glomerular Filtration Rate 154 mL/min (>60); Est Glom Filt Rate - Afr Amer 187 mL/min (>60); Estimated Creatinine Clearance 38.36 ml/min; Globulin 2.8 g/dL (2.2-4.2); Glucose 171 mg/dL (74-106); Potassium 3.5 mmol/L (3.5-5.1); Protein, Total 5.2 g/dL (6.4-8.2); Sodium Level 134 mmol/L (136-145)
--- NOTE | 2020-11-04 07:18 | PN.ORTHO_ITS ---
Subjective: Seen and examined doing okay pain controlled resting comfortably no complaints of fevers chills nausea vomiting shortness of breath or chest pain - Physical Exam Vitals/I&O's: Vital Signs Temp Pulse Resp BP Pulse Ox 98.6 F 102 H 16 128/77 H 93 11/04/20 05:45 11/04/20 05:45 11/04/20 05:45 11/04/20 05:45 11/04/20 05:45 Oxygen Flow Rate (L/min) 1 Oxygen Delivery Method Nasal Cannula Weight: 106 lb 14.787 oz Body Mass Index (BMI) 23.9 Finger Stick Blood Glucose 243 Intake and Output for Last 24 Hours 11/02/20 11/03/20 11/04/20 23:59 23:59 23:59 Intake Total 3533.75 / 3533.75 1103.75 / 1103.75 Output Total 2300 / 2300 225 / 225 Balance 1233.75 / 1233.75 878.75 / 878.75 General: Alert, Cooperative, No apparent distress Extremities: - - Right hip dressing clean dry and intact neurovascular intact compartments soft Microbiology Past 72 Hours 11/03/20 07:45 Mucosa - Nose SARS-CoV-2 Antigen (Rapid) - Final Laboratory Results 11/03/20 10:55: POC Glucose 250 H 11/03/20 16:40: POC Glucose 243 H 11/03/20 18:17: POC Glucose 273 H 11/03/20 22:13: POC Glucose 261 H 11/04/20 00:03: POC Glucose 226 H 11/04/20 05:38: WBC 13.7 H, RBC 3.26 L, Hgb 10.8 L, Hct 30.9 L, MCV 94.8, MCH 33.1 H, MCHC 35.0, RDW Std Deviation 42.3, RDW Coeff of Melissa 12.1, Plt Count 161, MPV 10.5, Immature Gran % (Auto) 0.400, Neut % (Auto) 77.9 H, Lymph % (Auto) 11.6 L, [place] % (Auto) 8.8, Eos % (Auto) 0.9, Baso % (Auto) 0.4, Absolute Neuts (auto) 10.7 H, Absolute Lymphs (auto) 1.59, Nucleated RBC % 0 11/04/20 05:38: Sodium 134 L, Potassium 3.5, Chloride 103, Carbon Dioxide 25.0, Anion Gap 6, BUN 9, Creatinine 0.43 L, Estim Creat Clear Calc 38.36, Est GFR (MDRD) Af Amer 187, Est GFR (MDRD) Non-Af 154, BUN/Creatinine Ratio 21.1 H, Glucose 171 H, Calcium 7.7 L, Total Bilirubin 1.40 H, AST 19, ALT 18, Alkaline Phosphatase 84, Total Protein 5.2 L, Albumin 2.4 L, Globulin 2.8, Albumin/Globulin Ratio 0.9 11/04/20 06:02: POC Glucose 168 H Current Medications Acetaminophen (Acetaminophen 500 Mg Tablet) 1,000 mg PO Q8 [facility] Last Admin: 11/04/20 05:56 Dose: 1,000 mg Documented by: Apixaban (Apixaban 2.5 Mg Tablet) 2.5 mg PO BID [facility] Aspirin (Aspirin E.C. 81 Mg Tablet) 81 mg PO DAILY@0800 [facility] Last Admin: 11/03/20 07:55 Dose: Not Given Documented by: Dextrose (Dextrose 50%-Water 25 Gm/50 Ml Disp.Syrin) 0 gm IV X1 PRN; Protocol PRN Reason: Hypoglycemia Glucagon (Glucagon 1 Mg/Ml Syringe) 1 mg IM .X1 PRN PRN Reason: Hypoglycemia Hydralazine HCl (Hydralazine 20 Mg/Ml Vial) 10 mg IV Q6H PRN PRN PRN Reason: for SBP>160 Hydromorphone HCl (Hydromorphone 1 Mg/Ml Syringe) 1 mg IV Q3H PRN PRN PRN Reason: pain 6-10 Last Admin: 11/04/20 04:40 Dose: 1 mg Documented by: Sodium Chloride () 1,000 mls @ 75 mls/hr IV .[id number] [facility] Last Infusion: 11/04/20 06:51 Dose: 75 mls/hr Documented by: Cefazolin Sodium () 1 gm in 50 mls @ 100 mls/hr IV Q8H [facility] Stop: 11/04/20 15:29 Last Infusion: 11/04/20 06:51 Dose: Infused Documented by: Insulin Glargine (Insulin Glargine 100 Units/Ml Pen) 6 units SC BID [facility] Last Admin: 11/03/20 22:20 Dose: 6 units Documented by: Insulin Human Lispro (Insulin Lispro 100 Unit/Ml Insuln.Pen) 0 unit SC Q6 [facility]; Protocol Last Admin: 11/04/20 06:03 Dose: 2 units Documented by: Ondansetron HCl (Ondansetron 4 Mg/2 Ml Vial) 4 mg IV Q8H PRN PRN PRN Reason: NAUSEA/VOMITING Last Admin: 11/03/20 11:01 Dose: 4 mg Documented by: Oxycodone HCl (Oxycodone 5 Mg Tablet) 5 - 10 mg PO Q4H PRN PRN PRN Reason: Pain Score 4-10 Last Admin: 11/04/20 02:06 Dose: 10 mg Documented by: Senna/Docusate Sodium (Senna/Docusate Sodium 1 Tablet) 2 tablet PO BID [facility] Last Admin: 11/03/20 22:20 Dose: 2 tablet Documented by: Sodium Chloride (0.9% Saline Lock 10 Ml Syringe) 10 - 40 ml IV UD PRN PRN Reason: SALINE FLUSH Last Admin: 11/02/20 19:00 Dose: 10 ml Documented by: Zolpidem Tartrate (Zolpidem Tartrate 5 Mg Tablet) 5 mg PO QHS PRN PRN PRN Reason: INSOMNIA Medical Necessity - Tobacco Use Smoking Status: Never smoker Assessment/Plan All Active Problems Intertrochanteric fracture of right femur (Acute) Postop day #1 right hip trochanteric femoral nail DVT prophylaxis SCDs Eliquis HEATHER hose Rx provided Pain control oxycodone and Tylenol Rx provided Weightbearing as tolerated PT OT Orthopedically stable for transfer [place] should be removed 14 to 17 days postop this may be done at outside facility if patient has not in town Follow-up in 2 weeks if available otherwise may follow-up in hometown with local orthopod Call with any questions or concerns recommend physical therapy Dressing should be left intact for 72 hours postop then removed prior to first shower. Do not completely submerge in tub bath or pool for 3 weeks postop After first dressing removed and shower apply light bandage over incisional area with medical tape and this should be changed daily at that point and cleaned with Betadine if not showering daily
--- NOTE | 2020-11-04 07:21 | DCINST_ITS ---
Discharge Diet: No Restrictions Weight Bearing Status: Weight bearing as tolerated Keep extremity elevated above heart level: Operative Extremity Call your doctor if you observe: Shortness of breath, Chest pain Additional Instructions: Begin daily showering warm water antibacterial soap postop day #3( 72hrs Post- operatively) and then daily. Leave the dressing on for 72 hours postoperatively then may remove prior to first shower and change dressing daily after this until no drainage for 2 consecutive days then may leave open to air. Wear compression stockings, may remove at night. [place] should be removed 14 to 17 days postop start physical therapy as directed in hospital. Call Dr. Castañeda's office with any concerns. Allergies/Adverse Reactions: Allergies meperidine [From Demerol] Allergy (Verified 11/03/20 14:07) Itching midazolam [From Versed] Allergy (Verified 11/02/20 18:33) shakey, itchy,little dots Penicillins [PCN] Allergy (Verified 11/02/20 16:15) Hives Medications to take at Discharge Acetaminophen [Tylenol Extra Strength] 1,000 mg PO Q6H PRN PRN 11/02/20 Aspirin E.C. [Ecotrin] 81 mg PO DAILY@0800 11/02/20 Celecoxib [Celebrex] 200 mg PO DAILY PRN 11/02/20 Apixaban [Eliquis] 2.5 mg PO BID #42 tablet 11/03/20 Oxycodone [Oxyir] 5 mg PO Q4H PRN PRN #60 tab 11/03/20 The following prescriptions were given: Apixaban [Eliquis] 2.5 mg PO BID #42 tablet Transmission Status: Received by [facility] Oxycodone [Oxyir] 5 mg PO Q4H PRN PRN #60 tab PRN Reason: Pain Score 6-10 Transmission Status: Received by [facility] Primary Care Physician: NOT,DEFINED [NON-STAFF] - Test Results: Test results from this visit will be discussed in further detail at your follow- up appointment, if applicable. Please Follow Up With: Alex Castañeda DO When: 2 weeks
[2020-11-04] MEDS: Aspirin E.C. 81 MG Tablet PO (08:34)
[2020-11-04] MEDS: APIXABAN 2.5 MG TABLET PO ×2 (08:34→21:29)
[2020-11-04] MEDS: Senna/Docusate Sodium 1 Tablet 2 TABLET PO ×2 (08:34→21:29)
--- NOTE | 2020-11-04 10:22 | CASEMGMT ---
Social Work Note SW received call from pt's Buster stating he would like to discuss SNF placement for pt and he will be at [facility] around 12:00-1:00pm. PARUL will meet with pt and pt's Buster when he arrives to [facility]. Plan: SNF pending acceptance and pre-cert Brenna Fernández AUTOMOTIVE GLASS MECHANIC, ANIMATION ARTIST
[2020-11-04 10:25] LABS: Bedside Glucose 196 mg/dL (70-110)
[2020-11-04 12:36] LABS: Bedside Glucose 205 mg/dL (70-110)
--- NOTE | 2020-11-04 13:04 | EKG12_ITS ---
Test Reason : Blood Pressure : / mmHG Vent. Rate : 087 BPM Atrial Rate : 087 BPM P-R Int : 108 ms QRS Dur : 076 ms QT Int : 390 ms P-R-T Axes : 012 -12 007 degrees QTc Int : 469 ms Sinus rhythm with short NV Inferior infarct , age undetermined Abnormal ECG Confirmed by BARB PRICE, TIMOTHY ([id number]), health editor ALEXANDRU MEJIA ([id number]) on 11/08/2020 8:53:07 AM Referred By: OLEG Confirmed By:TIMOTHY DAY MD
--- NOTE | 2020-11-04 13:06 | NURSING ---
RT called for stat EKG.
--- NOTE | 2020-11-04 13:14 | NURSING ---
Placed on tele, hr 170 to 185, Dr Polo was sent a photo of reading, and was requested to come up to see pt.
--- NOTE | 2020-11-04 13:16 | NURSING ---
EkG shows Afib with RVR. pt denies chest pain, and denies dizziness. Sitting in recliner.
--- NOTE | 2020-11-04 13:38 | PCM.PN.HOSP ---
Subjective: Earlier felt yucky. Denies any N/V. Later found to be in afib with RVR with HR in 180s. No known h/o afib, but remotely, saw a inbound sales advisor for tachycardia. She and her deny a h/o afib. Denies chest pain. Vitals/I&O's: Vital Signs Temp Pulse Resp BP Pulse Ox 37.0 C 150 H 16 129/75 H 98 11/04/20 12:47 11/04/20 12:47 11/04/20 12:47 11/04/20 13:24 11/04/20 13:24 Oxygen Flow Rate (L/min) 2 Oxygen Delivery Method Nasal Cannula Weight: 48.5 kg Body Mass Index (BMI) 23.9 Finger Stick Blood Glucose 243 Intake and Output for Last 24 Hours 11/02/20 11/03/20 11/04/20 23:59 23:59 23:59 Intake Total 3533.75 / 3533.75 1603.75 / 1603.75 Output Total 2300 / 2300 225 / 225 Balance 1233.75 / 1233.75 1378.75 / 1378.75 General: Alert, No apparent distress HEENT: - - masked facies Oral: Moist Mucosa, No Gingival or Mucosal Lesions/ Ulcerations Lungs: Clear to auscultation, Diminished Cardiovascular: Irregular Rate, Tachycardic Abdomen: Bowel Sounds Present, Soft, Non Tender, Non-Distended, No Hepato-splenomegaly Extremities: No edema, No Calf Tenderness Skin: No rashes, No breakdown Musculoskeletal: No Tenderness to Palpation of Joints or Extremities, No Muscle Wasting Psych/Mental Status: Appropriate, Flat Affect Microbiology Past 72 Hours 11/03/20 07:45 Mucosa - Nose SARS-CoV-2 Antigen (Rapid) - Final Laboratory Results 11/03/20 16:40: POC Glucose 243 H 11/03/20 18:17: POC Glucose 273 H 11/03/20 22:13: POC Glucose 261 H 11/04/20 00:03: POC Glucose 226 H 11/04/20 05:38: WBC 13.7 H, RBC 3.26 L, Hgb 10.8 L, Hct 30.9 L, MCV 94.8, MCH 33.1 H, MCHC 35.0, RDW Std Deviation 42.3, RDW Coeff of Melissa 12.1, Plt Count 161, MPV 10.5, Immature Gran % (Auto) 0.400, Neut % (Auto) 77.9 H, Lymph % (Auto) 11.6 L, [place] % (Auto) 8.8, Eos % (Auto) 0.9, Baso % (Auto) 0.4, Absolute Neuts (auto) 10.7 H, Absolute Lymphs (auto) 1.59, Nucleated RBC % 0 11/04/20 05:38: Sodium 134 L, Potassium 3.5, Chloride 103, Carbon Dioxide 25.0, Anion Gap 6, BUN 9, Creatinine 0.43 L, Estim Creat Clear Calc 38.36, Est GFR (MDRD) Af Amer 187, Est GFR (MDRD) Non-Af 154, BUN/Creatinine Ratio 21.1 H, Glucose 171 H, Calcium 7.7 L, Total Bilirubin 1.40 H, AST 19, ALT 18, Alkaline Phosphatase 84, Total Protein 5.2 L, Albumin 2.4 L, Globulin 2.8, Albumin/Globulin Ratio 0.9 11/04/20 06:02: POC Glucose 168 H 11/04/20 10:07: POC Glucose 196 H 11/04/20 12:04: POC Glucose 205 H EKG reviewed and showed atrial fibrillation with RVR. Current Medications Acetaminophen (Acetaminophen 500 Mg Tablet) 1,000 mg PO Q8 [facility] Last Admin: 11/04/20 05:56 Dose: 1,000 mg Documented by: Apixaban (Apixaban 2.5 Mg Tablet) 2.5 mg PO BID [facility] Last Admin: 11/04/20 08:34 Dose: 2.5 mg Documented by: Aspirin (Aspirin E.C. 81 Mg Tablet) 81 mg PO DAILY@0800 [facility] Last Admin: 11/04/20 08:34 Dose: 81 mg Documented by: Dextrose (Dextrose 50%-Water 25 Gm/50 Ml Disp.Syrin) 0 gm IV X1 PRN; Protocol PRN Reason: Hypoglycemia Glucagon (Glucagon 1 Mg/Ml Syringe) 1 mg IM .X1 PRN PRN Reason: Hypoglycemia Hydralazine HCl (Hydralazine 20 Mg/Ml Vial) 10 mg IV Q6H PRN PRN PRN Reason: for SBP>160 Hydromorphone HCl (Hydromorphone 1 Mg/Ml Syringe) 1 mg IV Q3H PRN PRN PRN Reason: pain 6-10 Last Admin: 11/04/20 04:40 Dose: 1 mg Documented by: Sodium Chloride () 1,000 mls @ 75 mls/hr IV .[id number] [facility] Last Infusion: 11/04/20 06:51 Dose: 75 mls/hr Documented by: Cefazolin Sodium () 1 gm in 50 mls @ 100 mls/hr IV Q8H [facility] Stop: 11/04/20 15:29 Last Infusion: 11/04/20 06:51 Dose: Infused Documented by: Insulin Glargine (Insulin Glargine 100 Units/Ml Pen) 6 units SC BID [facility] Last Admin: 11/04/20 10:10 Dose: 6 units Documented by: Insulin Human Lispro (Insulin Lispro 100 Unit/Ml Insuln.Pen) 0 unit SC Q6 [facility]; Protocol Last Admin: 11/04/20 12:06 Dose: 4 units Documented by: Ondansetron HCl (Ondansetron 4 Mg/2 Ml Vial) 4 mg IV Q8H PRN PRN PRN Reason: NAUSEA/VOMITING Last Admin: 11/03/20 11:01 Dose: 4 mg Documented by: Oxycodone HCl (Oxycodone 5 Mg Tablet) 5 - 10 mg PO Q4H PRN PRN PRN Reason: Pain Score 4-10 Last Admin: 11/04/20 09:07 Dose: 10 mg Documented by: Senna/Docusate Sodium (Senna/Docusate Sodium 1 Tablet) 2 tablet PO BID [facility] Last Admin: 11/04/20 08:34 Dose: 2 tablet Documented by: Sodium Chloride (0.9% Saline Lock 10 Ml Syringe) 10 - 40 ml IV UD PRN PRN Reason: SALINE FLUSH Last Admin: 11/02/20 19:00 Dose: 10 ml Documented by: Zolpidem Tartrate (Zolpidem Tartrate 5 Mg Tablet) 5 mg PO QHS PRN PRN PRN Reason: INSOMNIA STROKE Vital Signs/Narrative: Vital Signs Temp Pulse Resp BP BP Pulse Ox 11/04/20 13:24 129/75 H 98 11/04/20 13:17 107/64 11/04/20 12:47 37.0 C 150 H 16 118/65 93 11/04/20 10:15 36.9 C 121 H 16 123/83 H 91 Medical Necessity - Tobacco Use Smoking Status: Never smoker Assessment/Plan All Active Problems Intertrochanteric fracture of right femur (Acute) 1. afib with RVR new onset plan: diltiazem bolus followed by gtt check echo cycle troponins Initially transition over to oral medications as condition permits. 2. facial asymmetry: patient denies new complaints. I do not suspect a stroke. This is chronic and likely more pronounced given masked facies. no stroke work up needed at this time. 2. right intertronchanteric fracture s/p IM nail on 11/[address] Castañeda: Weightbearing as tolerated PT OT Orthopedically stable for transfer [place] should be removed 14 to 17 days postop this may be done at outside facility if patient has not in town Follow-up in 2 weeks if available otherwise may follow-up in hometown with local orthopod Call with any questions or concerns recommend physical therapy Dressing should be left intact for 72 hours postop then removed prior to first shower. Do not completely submerge in tub bath or pool for 3 weeks postop After first dressing removed and shower apply light bandage over incisional area with medical tape and this should be changed daily at that point and cleaned with Betadine if not showering daily 3. 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 Discussed with the patient who said her mother had Parkinson's disease. Discussed these recommendations with the patient's today. They live near [facility]. I recommended that he follow-up with the movement disorder/neurodegenerative disorder clinic at [facility]. They prefer to stay in the [facility] system. 4. DM2 uncontrolled A1c 11.3 continue glargine and SSI no evidence of DKA at this this time. will need insulin upon discharge Per the patient's , she has had a laissez-faire attitude towards her diabetes and eats candy and does not check her blood sugar [place] 5. VTE prophylaxis: SCDs for now. 6. protein malnutrition suspect moderate to severe check albumin consult nutrition for recs Greater than 35 minutes which greater than 50% of time was coordinating care for the patient's atrial fibrillation but also specimen patient's about her condition with Beatriz dickerson as well as a suspected neurodegenerative disorder. Inpatient E&M: 88113 Subs Hosp L3
--- NOTE | 2020-11-04 13:45 | ECHOD_ITS ---
Reason For Study: AFIB Procedure This was a 2D Doppler, Color Flow transthoracic echocardiogram. The study was technically difficult. Exam performed portable in patient room. Left Ventricle Normal LV size. Left ventricular systolic function is hyperdynamic. The estimated ejection fraction is 75 %. Unable to assess diastolic dysfunction. No regional wall motion abnormalities noted. Right Ventricle Normal RV size. Normal systolic function. Atria The left atrium is mildly enlarged. Normal right atrium. No doppler evidence for ASD. Mitral Valve There is no mitral annular calcification. Normal mitral valve. Trivial mitral valve insufficiency. Tricuspid Valve Normal tricuspid valve. Trivial tricuspid valve insufficiency. Right ventricular systolic pressure estimated to be 36 mmHg. Aortic Valve Trisinus/trileaflet aortic valve. Mild focal aortic valve thickening. Pulmonic Valve The pulmonic valve is not well visualized. Great Vessels Normal sized aortic root. Calcified aortic root. Pericardium/Pleural No pericardial effusion. MMode/2D Measurements & Calculations LVIDd: 2.4 cm IVSd: 0.93 cm Ao root diam: 3.0 cm LVIDs: 1.5 cm LVPWd: 0.87 cm RVDd: 2.6 cm FS: 35.8 % LAV(MOD-bp): 31.2 ml LVAd ap4: 19.0 cm2 SV(MOD-sp4): 33.2 ml LAV(MOD-bp) Indexed: 23.0 ml/m2 EDV(MOD-sp4): 44.6 ml LAV(MOD-sp2): 28.7 ml EDV(sp4-el): 46.2 ml LAV(MOD-sp4): 29.3 ml LVAs ap4: 8.7 cm2 ESV(MOD-sp4): 11.3 ml ESV(sp4-el): 11.4 ml EF(MOD-sp4): 74.5 % EF(sp4-el): 75.4 % SV(sp4-el): 34.8 ml LA A4 area: 12.1 cm2 LA dimension(2D): 3.3 cm RA A4 area: 9.0 cm2 Doppler Measurements & Calculations MV E max marisabel: 96.1 cm/sec Ao V2 max: 146.5 cm/sec LV V1 max: 116.5 cm/sec Ao max P.7 mmHg LV V1 max P.5 mmHg PA V2 max: 134.5 cm/sec TR max marisabel: 284.6 cm/sec TR max P.8 mmHg ECHO/Echo Complete Interpretation Summary The study was technically difficult. Left ventricular systolic function is hyperdynamic. The estimated ejection fraction is 75 %. The left atrium is mildly enlarged. Trivial mitral valve insufficiency. Trivial tricuspid valve insufficiency. Mild focal aortic valve thickening. Calcified aortic root. Right ventricular systolic pressure estimated to be 36 mmHg. Unable to assess diastolic dysfunction. Ordering Physician: Dave Carroll Performed By: Latanya Burgess RDCS
--- NOTE | 2020-11-04 13:49 | CASEMGMT ---
Social Work Note Pt's Buster present at [facility]. SW in to speak with pt. SW introduced self and role at [facility]. Pt is alert and orientated. Buster states everyone is telling him to take pt home at discharge because if pt goes to SNF pt will be laying in bed all day except for like a hour of therapy. Buster asked about HHC. SW explained HHC vs SNF. SW also reviewed PT with pt and Buster. SW explained that at this time pt is max assist of 1 for initial rolling and mod assist of two for sit to stand and stand pivot. SW explained that since pt is assist of two right now, pt will need to have two people available 24/ to assist pt. Buster states that his daughter Gretta has offered to stay with them 24/7 and Buster states he has additional family that is able to assist. Buster states he would like to discuss further with his family frank. SW asked if process for SNF could be started. SW explained that referral for SNF could be cancelled at anytime but it is beneficial to just get the SNF referral started. Buster and pt gave this worker permission to send referral to [facility] in [place]. SW explained referral process and that pt will need pre-cert. Buster and pt state understanding. Plan: SNF vs Home with HHC Brenna Fernández LUMBER STRAIGHTENER, LOG LOADER
--- NOTE | 2020-11-04 13:52 | NURSING ---
1229 Report called to Glenna, including pt was in Afib with RVR
[2020-11-04] MEDS: dilTIAZem 25 MG/5 ML Vial 20 MG IV BOLUS (13:58)
[2020-11-04] MEDS: 0.9% Saline Lock 10 ML Syringe IV ×3 (13:58→15:25)
--- NOTE | 2020-11-04 14:32 | CASEMGMT ---
Addendum entered by Brenna Fernández 11/04/20 15:44: PARUL attempted twice to fax referral to [facility] and both times the fax didn't go through. PARUL placed a call to [facility] and spoke with Yamilet. Yamilet states to try different fax [phone]. PARUL faxed referral to new fax number. Original Note: Social Work Note PARUL placed a call to [facility] ([phone]) and spoke with Yamilet in admissions. Yamilet states willing to review referral. PARUL faxed referral to [phone]. Brenna Fernández CARTRIDGE LOADING OPERATOR, OPERATIONS GENERAL AGENT
[2020-11-04] MEDS: Ondansetron 4 MG/2 ML Vial IV (14:53)
[2020-11-04] MEDS: DiphenhydrAMINE 25 MG Capsule 50 MG PO (15:24)
[2020-11-04] MEDS: Metoprolol Tartrate 50 MG Tablet PO ×2 (15:25→21:41)
[2020-11-04] MEDS: Metoprolol Tartrate 5 MG/5 ML Vial IV (15:25)
--- NOTE | 2020-11-04 15:55 | EKG12_ITS ---
Test Reason : TACHYCARDIA Blood Pressure : / mmHG Vent. Rate : 177 BPM Atrial Rate : 182 BPM P-R Int : 000 ms QRS Dur : 076 ms QT Int : 272 ms P-R-T Axes : 000 -10 146 degrees QTc Int : 466 ms Atrial fibrillation with premature ventricular or aberrantly conducted complexes Nonspecific ST and T wave abnormality Abnormal ECG Confirmed by BARB PRICE, TIMOTHY ([id number]), newspaper photo editor ALEXANDRU MEJIA ([id number]) on 11/08/2020 8:59:10 AM Referred By: MARIAH Confirmed By:TIMOTHY DAY MD
[2020-11-04 18:15] LABS: Bedside Glucose 172 mg/dL (70-110)
[2020-11-04 21:50] LABS: Bedside Glucose 157 mg/dL (70-110)
[2020-11-05] VITALS (14 sets, daily range): BP systolic 122–128; BP diastolic 50–68; PULSE 79–99; RESP 16–18; TEMP 36.7–36.8; O2SAT 92–96
[2020-11-05] MEDS: oxyCODONE 5 MG Tablet PO ×4 (00:44→21:24)
[2020-11-05] MEDS: HYDROmorphone 1 MG/ML Syringe IV (03:59)
[2020-11-05] MEDS: Acetaminophen 500 MG Tablet 1000 MG PO ×3 (06:28→21:23)
[2020-11-05] MEDS: Insulin Lispro 100 UNIT/ML INSULN.PEN SC ×4 (06:30→21:24)
[2020-11-05 06:45] LABS: Bedside Glucose 158 mg/dL (70-110)
[2020-11-05] MEDS: Metoprolol Tartrate 50 MG Tablet PO ×2 (09:22→21:23)
[2020-11-05] MEDS: Aspirin E.C. 81 MG Tablet PO (09:23)
[2020-11-05] MEDS: Senna/Docusate Sodium 1 Tablet 2 TABLET PO ×2 (09:23→21:24)
[2020-11-05] MEDS: APIXABAN 2.5 MG TABLET PO ×2 (09:23→21:23)
--- NOTE | 2020-11-05 10:17 | CASEMGMT ---
PARUL received a call from Yamilet with [facility] and they can accept patient. She will notify PARUL when they get pre-cert. PARUL is also waiting on patient's family to see what they decided. Vida SANTOS
--- NOTE | 2020-11-05 10:54 | CASEMGMT ---
SW spoke with patient's and daughter. Introduced self and role at [facility]. SW explained that [facility] accepted patient, but we will have to wait on her insurance to give the approval. SW told them it is not likely that we will hear today and since it is Sunday she may be here through the weekend. They verbalized understanding. SW also shared this same information with patient. Plan: [facility] pending pre-cert. Vida SANTOS
[2020-11-05 12:16] LABS: Bedside Glucose 298 mg/dL (70-110)
--- NOTE | 2020-11-05 13:15 | PCM.PN.ORT ---
Subjective: seen and examinded complain of right groing pain. up and walked to door with PT. - Physical Exam Vitals/I&O's: Vital Signs Temp Pulse Resp BP Pulse Ox 98.1 F 86 18 128/68 H 92 11/05/20 08:55 11/05/20 12:19 11/05/20 08:55 11/05/20 09:22 11/05/20 09:40 Oxygen Flow Rate (L/min) 94 Oxygen Delivery Method Room Air Weight: 106 lb 14.787 oz Body Mass Index (BMI) 23.9 Finger Stick Blood Glucose 243 Intake and Output for Last 24 Hours 11/03/20 11/04/20 11/05/20 23:59 23:59 23:59 Intake Total 3533.75 / 3533.75 1951.00 / 1951.00 240 / 240 Output Total 2300 / 2300 225 / 225 1600 / 1600 Balance 1233.75 / 1233.75 1726.00 / 1726.00 -1360 / -1360 General: Oriented x3, Cooperative, No apparent distress Extremities: - - right hip compartments soft dressing c/d/I Microbiology Past 72 Hours 11/03/20 07:45 Mucosa - Nose SARS-CoV-2 Antigen (Rapid) - Final Laboratory Results 11/04/20 05:38: TSH 1.30 11/04/20 05:38: B-Natriuretic Peptide 111.0 H 11/04/20 14:38: Troponin I < 0.015 11/04/20 17:33: Troponin I 0.023 11/04/20 18:06: POC Glucose 172 H 11/04/20 20:48: Troponin I 0.045 11/04/20 21:31: POC Glucose 157 H 11/05/20 06:29: POC Glucose 158 H 11/05/20 12:02: POC Glucose 298 H Current Medications Acetaminophen (Acetaminophen 500 Mg Tablet) 1,[address] [facility] Last Admin: 11/05/20 06:28 Dose: 1,000 mg Documented by: Apixaban (Apixaban 2.5 Mg Tablet) 2.[address] [facility] Last Admin: 11/05/20 09:23 Dose: 2.5 mg Documented by: Aspirin (Aspirin E.C. 81 Mg Tablet) 81 mg PO DAILY@0800 [facility] Last Admin: 11/05/20 09:23 Dose: 81 mg Documented by: Dextrose (Dextrose 50%-Water 25 Gm/50 Ml Disp.Syrin) 0 gm IV X1 PRN; Protocol PRN Reason: Hypoglycemia Glucagon (Glucagon 1 Mg/Ml Syringe) 1 mg IM .X1 PRN PRN Reason: Hypoglycemia Hydralazine HCl (Hydralazine 20 Mg/Ml Vial) 10 mg IV Q6H PRN PRN PRN Reason: for SBP>160 Insulin Glargine (Insulin Glargine 100 Units/Ml Pen) [address] [facility] Last Admin: 11/05/20 09:24 Dose: 6 units Documented by: Insulin Human Lispro (Insulin Lispro 100 Unit/Ml Insuln.Pen) 0 unit [facility]; Protocol Last Admin: 11/05/20 12:04 Dose: 6 u Documented by: Metoprolol Tartrate (Metoprolol Tartrate 50 Mg Tablet) [address] [facility] Last Admin: 11/05/20 09:22 Dose: 50 mg Documented by: Metoprolol Tartrate (Metoprolol Tartrate 5 Mg/5 Ml Vial) 5 mg IV Q4H PRN PRN PRN Reason: Heart Rate >120 Last Admin: 11/04/20 15:25 Dose: 5 mg Documented by: Nutritional Formula (Lactose Free) (Glucerna Shake 120 Ml Liquid) 120 ml PO 4X/DAY [facility] Ondansetron HCl (Ondansetron 4 Mg/2 Ml Vial) 4 mg IV Q8H PRN PRN PRN Reason: NAUSEA/VOMITING Last Admin: 11/04/20 14:53 Dose: 4 mg Documented by: Oxycodone HCl (Oxycodone 5 Mg Tablet) 5 - 10 mg PO Q4H PRN PRN PRN Reason: Pain Score 4-10 Last Admin: 11/05/20 09:22 Dose: 10 mg Documented by: Senna/Docusate Sodium (Senna/Docusate Sodium 1 Tablet) [address] [facility] Last Admin: 11/05/20 09:23 Dose: 2 tablet Documented by: Sodium Chloride (0.9% Saline Lock 10 Ml Syringe) 10 - 40 ml IV UD PRN PRN Reason: SALINE FLUSH Last Admin: 11/04/20 15:25 Dose: 10 ml Documented by: Zolpidem Tartrate (Zolpidem Tartrate 5 Mg Tablet) 5 mg PO QHS PRN PRN PRN Reason: INSOMNIA Medical Necessity - Tobacco Use Smoking Status: Never smoker Assessment/Plan All Active Problems Intertrochanteric fracture of right femur (Acute) POD #2 right TFN DVT prophylaxis SCDs Connie ROMERO hose Rx provided Pain control oxycodone and Tylenol Rx provided Weightbearing as tolerated PT OT Orthopedically stable for transfer [place] should be removed 14 to 17 days postop this may be done at outside facility if patient has not in town Follow-up in 2 weeks if available otherwise may follow-up in hometown with local orthopod Call with any questions or concerns recommend physical therapy Dressing should be left intact for 72 hours postop then removed prior to first shower. Do not completely submerge in tub bath or pool for 3 weeks postop After first dressing removed and shower apply light bandage over incisional area with medical tape and this should be changed daily at that point and cleaned with Betadine if not showering daily
[2020-11-05] MEDS: Glucerna Shake 120 ML LIQUID PO ×3 (13:23→21:23)
--- NOTE | 2020-11-05 14:15 | PN_ITS ---
Reason for Visit: hip fxr Subjective: No new events. Feeling well. No evidence of recurrent A. fib with RVR. Vitals/I&O's: Vital Signs Temp Pulse Resp BP Pulse Ox 36.7 C 86 18 128/68 H 92 11/05/20 08:55 11/05/20 12:19 11/05/20 08:55 11/05/20 09:22 11/05/20 13:06 Oxygen Flow Rate (L/min) 94 Oxygen Delivery Method Room Air Weight: 48.5 kg Body Mass Index (BMI) 23.9 Finger Stick Blood Glucose 243 Intake and Output for Last 24 Hours 11/03/20 11/04/20 11/05/20 23:59 23:59 23:59 Intake Total 3533.75 / 3533.75 1951.00 / 1951.00 240 / 240 Output Total 2300 / 2300 225 / 225 1600 / 1600 Balance 1233.75 / 1233.75 1726.00 / 1726.00 -1360 / -1360 General: Alert, No apparent distress HEENT: Atraumatic, Normocephalic Oral: Moist Mucosa, No Gingival or Mucosal Lesions/ Ulcerations Neck: No Nodes, Thyroid Normal Size and Texture Lungs: Clear to auscultation, Normal air movement, No rhonchi, No wheeze Cardiovascular: Regular rate, Regular Rhythm, Normal S1, Normal S2, No murmurs Abdomen: Bowel Sounds Present, Soft, Non Tender, Non-Distended Extremities: No edema, No Calf Tenderness Psych/Mental Status: Normal Affect, Appropriate Microbiology Past 72 Hours 11/03/20 07:45 Mucosa - Nose SARS-CoV-2 Antigen (Rapid) - Final Laboratory Results 11/04/20 05:38: TSH 1.30 11/04/20 05:38: B-Natriuretic Peptide 111.0 H 11/04/20 14:38: Troponin I < 0.015 11/04/20 17:33: Troponin I 0.023 11/04/20 18:06: POC Glucose 172 H 11/04/20 20:48: Troponin I 0.045 11/04/20 21:31: POC Glucose 157 H 11/05/20 06:29: POC Glucose 158 H 11/05/20 12:02: POC Glucose 298 H Current Medications Acetaminophen (Acetaminophen 500 Mg Tablet) 1,000 mg PO Q8 [facility] Last Admin: 11/05/20 13:23 Dose: 1,000 mg Documented by: Apixaban (Apixaban 2.5 Mg Tablet) 2.5 mg PO BID [facility] Last Admin: 11/05/20 09:23 Dose: 2.5 mg Documented by: Aspirin (Aspirin E.C. 81 Mg Tablet) 81 mg PO DAILY@0800 [facility] Last Admin: 11/05/20 09:23 Dose: 81 mg Documented by: Dextrose (Dextrose 50%-Water 25 Gm/50 Ml Disp.Syrin) 0 gm IV X1 PRN; Protocol PRN Reason: Hypoglycemia Glucagon (Glucagon 1 Mg/Ml Syringe) 1 mg IM .X1 PRN PRN Reason: Hypoglycemia Hydralazine HCl (Hydralazine 20 Mg/Ml Vial) 10 mg IV Q6H PRN PRN PRN Reason: for SBP>160 Insulin Glargine (Insulin Glargine 100 Units/Ml Pen) 6 units SC BID [facility] Last Admin: 11/05/20 09:24 Dose: 6 units Documented by: Insulin Human Lispro (Insulin Lispro 100 Unit/Ml Insuln.Pen) 0 unit SC [facility]; Protocol Last Admin: 11/05/20 12:04 Dose: 6 u Documented by: Metoprolol Tartrate (Metoprolol Tartrate 50 Mg Tablet) 50 mg PO BID [facility] Last Admin: 11/05/20 09:22 Dose: 50 mg Documented by: Metoprolol Tartrate (Metoprolol Tartrate 5 Mg/5 Ml Vial) 5 mg IV Q4H PRN PRN PRN Reason: Heart Rate >120 Last Admin: 11/04/20 15:25 Dose: 5 mg Documented by: Nutritional Formula (Lactose Free) (Glucerna Shake 120 Ml Liquid) 120 ml PO 4X/DAY [facility] Last Admin: 11/05/20 13:23 Dose: 120 ml Documented by: Ondansetron HCl (Ondansetron 4 Mg/2 Ml Vial) 4 mg IV Q8H PRN PRN PRN Reason: NAUSEA/VOMITING Last Admin: 11/04/20 14:53 Dose: 4 mg Documented by: Oxycodone HCl (Oxycodone 5 Mg Tablet) 5 - 10 mg PO Q4H PRN PRN PRN Reason: Pain Score 4-10 Last Admin: 11/05/20 13:23 Dose: 10 mg Documented by: Senna/Docusate Sodium (Senna/Docusate Sodium 1 Tablet) 2 tablet PO BID [facility] Last Admin: 11/05/20 09:23 Dose: 2 tablet Documented by: Sodium Chloride (0.9% Saline Lock 10 Ml Syringe) 10 - 40 ml IV UD PRN PRN Reason: SALINE FLUSH Last Admin: 11/04/20 15:25 Dose: 10 ml Documented by: Zolpidem Tartrate (Zolpidem Tartrate 5 Mg Tablet) 5 mg PO QHS PRN PRN PRN Reason: INSOMNIA STROKE Vital Signs/Narrative: Vital Signs Pulse Pulse Ox 11/05/20 13:06 92 11/05/20 12:19 86 Medical Necessity - Tobacco Use Smoking Status: Never smoker Assessment/Plan All Active Problems Intertrochanteric fracture of right femur (Acute) 1. afib with RVR new onset and back into normal sinus rhythm as of 415. plan: * echo: EF 35%. * troponins negative * Continue with metoprolol tartrate. * Patient developed an allergic reaction to the diltiazem where she had a macular rash on her left upper extremity where it was being infused. 2. facial asymmetry: patient denies new complaints. I do not suspect a stroke. This is chronic and likely more pronounced given masked facies. no stroke work up needed at this time. 2. right intertronchanteric fracture s/p IM nail on 11/[address] Castañeda: * Weightbearing as tolerated PT OT * Orthopedically stable for transfer * [place] should be removed 14 to 17 days postop this may be done at outside facility if patient has not in town * Follow-up in 2 weeks if available otherwise may follow-up in hometown with local orthopod * Call with any questions or concerns recommend physical therapy * Dressing should be left intact for 72 hours postop then removed prior to first shower. Do not completely submerge in tub bath or pool for 3 weeks postop * After first dressing removed and shower apply light bandage over incisional area with medical tape and this should be changed daily at that point and cleaned with Betadine if not showering daily 3. 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 Discussed with the patient who said her mother had Parkinson's disease. Discussed these recommendations with the patient's today. They live near [facility] side of [place]. I recommended that he follow-up with the movement disorder/neurodegenerative disorder clinic at [facility]. They prefer to stay in the [facility] system. 4. DM2 uncontrolled A1c 11.3 continue glargine and SSI no evidence of DKA at this this time. will need insulin upon discharge Per the patient's , she has had a laissez-faire attitude towards her diabetes and eats candy and does not check her blood sugar [place] 5. VTE prophylaxis: SCDs for now. 6. protein malnutrition suspect moderate to severe check albumin consult nutrition for recs Greater than 35 minutes which greater than 50% of time was discussing with the patient's and daughter. They requested transfer to [facility] because that is where they live. Explained that he can call the physicians at [place] but unlikely the patient will be excepted as her work-up has been essentially completed and she is medically stable for discharge. They expressed understanding for that. The plan is for the patient to go to a half-way facility in [place] pending insurance authorization.. Also discussed our recommendations for neurology follow-up in my suspicion for a neurodegenerative disorder. Inpatient E&M: [id number] [facility] L3
--- NOTE | 2020-11-05 15:28 | CASEMGMT ---
PARUL spoke with Yamilet at [facility]. She doubts she will hear from insurance, but PARUL did give her the number to U in the event she does hear. PARUL also put a green sheet on her chart just in case. Yamilet asked if patient had her COVID vaccines. PARUL asked patient and she did have them. PARUL told her she will need her vaccine card to show them at [facility]. PARUL let Yamilet know she did have vaccines. PARUL called patient's , but he was not available so SW left him a voice mail letting him know that we still have not heard from insurance and it is likely she will be here all weekend. SW also let him know about patient needing her COVID vaccine card. Plan: d/c to [facility] pending insurance approval. Green sheet on chart in the event approval is received. Vida SANTOS
[2020-11-05 17:20] LABS: Bedside Glucose 252 mg/dL (70-110)
--- NOTE | 2020-11-05 18:44 | NURSING ---
Yamilet at [facility] called to notify that insurance approved admission.
[2020-11-05 21:41] LABS: Bedside Glucose 270 mg/dL (70-110)
[2020-11-06] VITALS (7 sets, daily range): BP systolic 109–125; BP diastolic 48–62; PULSE 85–116; RESP 18; TEMP 36.6–37.5; O2SAT 91–95
[2020-11-06] MEDS: oxyCODONE 5 MG Tablet PO ×3 (01:24→11:28)
[2020-11-06] MEDS: Acetaminophen 500 MG Tablet 1000 MG PO (06:12)
[2020-11-06] MEDS: Insulin Lispro 100 UNIT/ML INSULN.PEN SC (06:19)
[2020-11-06 06:25] LABS: Bedside Glucose 232 mg/dL (70-110)
[2020-11-06] MEDS: Metoprolol Tartrate 50 MG Tablet PO (08:33)
[2020-11-06] MEDS: APIXABAN 2.5 MG TABLET PO (08:33)
[2020-11-06] MEDS: Aspirin E.C. 81 MG Tablet PO (08:33)
[2020-11-06] MEDS: Glucerna Shake 120 ML LIQUID PO (08:33)
[2020-11-06] MEDS: Senna/Docusate Sodium 1 Tablet 2 TABLET PO (08:35)
--- NOTE | 2020-11-06 09:03 | TREXTCAR_ITS ---
- Diet 11/04/20 10:09 Diet: Regular - General Is pt able to select menu?: Yes - Routine Orders/Code Status Routine Lab Work: CBC, BMP Code Status: Full Code - Wound(s) right elbow Wound Type: Abrasion right hip Wound Type: Surgical Incision - Therapies Weight Bearing: Weight bearing as tolerated Extremity Affected:: Right Lower Physical Therapy: Eval and Treat Occupational Therapy: Eval and Treat - Allergies/Procedures Done in Hospital Allergies/Adverse Reactions: Allergies diltiazem Allergy (Verified 11/04/20 14:47) Swelling meperidine [From Demerol] Allergy (Verified 11/03/20 14:07) Itching midazolam [From Versed] Allergy (Verified 11/02/20 18:33) shakey, itchy,little dots Penicillins [PCN] Allergy (Verified 11/02/20 16:15) Hives - Type of Care/Length of Stay Estimated LOS: Convalescent Care Less Than 30 days Type of Care Needed: Skilled Rehab Potential: Fair Prognosis: Fair - Additional Orders/Day of Discharge Additional Orders: [place] should be removed 14 to 17 days postop this may be done at outside facility if patient has not in town. Follow-up in 2 weeks if available otherwise may follow-up in hometown with local orthopod. Call with any questions or concerns recommend physical therapy. Dressing should be left intact for 72 hours postop then removed prior to first shower. Do not completely submerge in tub bath or pool for 3 weeks postop. After first dressing removed and shower apply light bandage over incisional area with medical tape and this should be changed daily at that point and cleaned with Betadine if not showering daily Day of Discharge: 11/06/20 - Dietary and Speech Recommendations Dietitian Recommendations/Changes: Change diet to Carbohydrate-Controlled; no caloric restriction post-op. Will offer glucerna shake as needed post-op. Refer to [facility] for diabetes self management education including diet education. - Follow Up Care Primary Care Physician: NOT,DEFINED [NON-STAFF] - Please Follow Up With: Alex Castañeda DO When: 2 weeks (or other orthopaedic physician) Please Follow Up With: [facility] When: Call [phone] for appointment
--- NOTE | 2020-11-06 09:08 | PCM.DC.SUM ---
Discharge Date and Diagnosis Date of Admission: 11/02/20 Date of Discharge: 11/06/20 - Primary Discharge Diagnosis Acute Problems: 1. afib with RVR new onset and back into normal sinus rhythm as of 415. plan: echo: EF 35%. troponins negative Continue with metoprolol tartrate. Patient developed an allergic reaction to the diltiazem where she had a macular rash on her left upper extremity where it was being infused. Given transient nature, I do not feel necessitates long-term anticoagulation beyond VTE prophylactic dosing, unless it recurs. 2. facial asymmetry: patient denies new complaints. I do not suspect a stroke. This is chronic and likely more pronounced given masked facies. no stroke work up needed at this time. 2. right intertronchanteric fracture s/p IM nail on 11/[address] Castañeda: Weightbearing as tolerated PT OT Orthopedically stable for transfer [place] should be removed 14 to 17 days postop this may be done at outside facility if patient has not in town Follow-up in 2 weeks if available otherwise may follow-up in hometown with local orthopod Call with any questions or concerns recommend physical therapy Dressing should be left intact for 72 hours postop then removed prior to first shower. Do not completely submerge in tub bath or pool for 3 weeks postop After first dressing removed and shower apply light bandage over incisional area with medical tape and this should be changed daily at that point and cleaned with Betadine if not showering daily 3. 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 Discussed with the patient who said her mother had Parkinson's disease. Discussed these recommendations with the patient's today. They live near [facility]. I recommended that he follow-up with the movement disorder/neurodegenerative disorder clinic at [facility]. They prefer to stay in the [facility] system. 4. DM2 uncontrolled A1c 11.3 continue glargine and SSI, but increase glargine to 10 BID no evidence of DKA at this this time. will need insulin upon discharge Per the patient's , she has had a laissez-faire attitude towards her diabetes and eats candy and does not check her blood sugar [place] 5. VTE prophylaxis: continue apixaban for a least 14 days until full ambulatory up to 35 days 6. moderate protein malnutrition suspect moderate to severe check albumin consult nutrition for recs - Secondary Discharge Diagnosis Chronic Problems: Chronic Problems Type 2 diabetes mellitus (Chronic) Arthritis (Chronic) Hospital Course and Treatment Imaging Results: Clinical Impression(s) from Imaging Studies Chest X-Ray 11/02/20 16:46 IMPRESSION: Chronic interstitial changes, no superimposed acute pulmonary process Electronically Signed: Evangelista Thomas MD at 17:14 EDT , Service support , Hip/Pelvis X-Ray 11/02/20 16:46 IMPRESSION: Acute, minimally displaced intertrochanteric fracture of the right femur. Orthopedic surgery consultation recommended Electronically Signed: Evangelista Thomas MD at 17:15 EDT , Service support , Hip X-Ray 11/03/20 14:28 IMPRESSION: Intraoperative films show anatomic alignment of the previously described intertrochanteric fracture after surgical reduction Electronically Signed: Evangelista Thomas MD at 17:03 EDT , Service support , Echocardiogram 11/04/20 13:45 Interpretation Summary The study was technically difficult. Left ventricular systolic function is hyperdynamic. The estimated ejection fraction is 75 %. The left atrium is mildly enlarged. Trivial mitral valve insufficiency. Trivial tricuspid valve insufficiency. Mild focal aortic valve thickening. Calcified aortic root. Right ventricular systolic pressure estimated to be 36 mmHg. Unable to assess diastolic dysfunction. Ordering Physician: Dave Carroll Performed By: Latanya Burgess RDCS [facility] Operations: - - Synthes intermediate length nail 125 deg [11] mm diameter 85 mm helical blade [36] mm screw Procedures: None Summary of Care Provided: The patient is a 75 year old F hip pain after a fall. Patient was visiting the area from [place] and fell and developed a right intertrochanteric femur fracture. Patient underwent a IM nailing with screw on the . Patient's hospitalization was complicated by paroxysmal A. fib with RVR. Did convert into to normal sinus rhythm and patient has been on metoprolol and has not any further events. Patient will not be on long-term anticoagulation beyond a VTE prophylactic dosing for her hip surgery with apixaban. That is, assuming, that she does not have any further events. Patient will be discharged home in stable condition. Patient does have frequent falls prior to this event. Patient has signs are concerning for movement disorders and I have recommended that she follow-up with movement disorder specialist. They prefer to stay within the [facility] system so I have made recommendations for the patient to follow-up with a neurologic restorationism clinic at the [facility]. [] - Physical Exam Vitals/I&O's: Vital Signs Temp Pulse Resp BP Pulse Ox 36.6 C 85 18 125/48 H 91 11/06/20 06:14 11/06/20 08:33 11/06/20 06:14 11/06/20 08:33 11/06/20 07:10 Oxygen Flow Rate (L/min) 94 Oxygen Delivery Method Room Air Weight: 48.5 kg Body Mass Index (BMI) 23.9 Finger Stick Blood Glucose 243 Intake and Output for Last 24 Hours 11/04/20 11/05/20 11/06/20 23:59 23:59 23:59 Intake Total 1950.00 / 1950.00 1140 / 1140 360 / 360 Output Total 225 / 225 2700 / 2700 400 / 400 Balance 1726.00 / 1726.00 -1560 / -1560 -40 / -40 General: Alert, No apparent distress HEENT: Atraumatic, Normocephalic Lungs: Clear to auscultation, Normal air movement, No rhonchi, No wheeze Cardiovascular: Regular rate, Regular Rhythm, Normal S1, Normal S2 Abdomen: Bowel Sounds Present, Soft, Non Tender, Non-Distended Microbiology Past 72 Hours 11/03/20 07:45 Mucosa - Nose SARS-CoV-2 Antigen (Rapid) - Final Laboratory Results 11/05/20 12:02: POC Glucose 298 H 11/05/20 17:12: POC Glucose 252 H 11/05/20 21:20: POC Glucose 270 H 11/06/20 06:17: POC Glucose 232 H Current Medications Acetaminophen (Acetaminophen 500 Mg Tablet) 1,000 mg PO Q8 [facility] Last Admin: 11/06/20 06:12 Dose: 1,000 mg Documented by: Apixaban (Apixaban 2.5 Mg Tablet) 2.5 mg PO BID [facility] Last Admin: 11/06/20 08:33 Dose: 2.5 mg Documented by: Aspirin (Aspirin E.C. 81 Mg Tablet) 81 mg PO DAILY@0800 [facility] Last Admin: 11/06/20 08:33 Dose: 81 mg Documented by: Dextrose (Dextrose 50%-Water 25 Gm/50 Ml Disp.Syrin) 0 gm IV X1 PRN; Protocol PRN Reason: Hypoglycemia Glucagon (Glucagon 1 Mg/Ml Syringe) 1 mg IM .X1 PRN PRN Reason: Hypoglycemia Hydralazine HCl (Hydralazine 20 Mg/Ml Vial) 10 mg IV Q6H PRN PRN PRN Reason: for SBP>160 Insulin Glargine (Insulin Glargine 100 Units/Ml Pen) 6 units SC BID [facility] Last Admin: 11/06/20 08:38 Dose: 6 units Documented by: Insulin Human Lispro (Insulin Lispro 100 Unit/Ml Insuln.Pen) 0 unit SC ACHS [facility]; Protocol Last Admin: 11/06/20 06:19 Dose: 4 u Documented by: Metoprolol Tartrate (Metoprolol Tartrate 50 Mg Tablet) 50 mg PO BID [facility] Last Admin: 11/06/20 08:33 Dose: 50 mg Documented by: Metoprolol Tartrate (Metoprolol Tartrate 5 Mg/5 Ml Vial) 5 mg IV Q4H PRN PRN PRN Reason: Heart Rate >120 Last Admin: 11/04/20 15:25 Dose: 5 mg Documented by: Nutritional Formula (Lactose Free) (Glucerna Shake 120 Ml Liquid) 120 ml PO 4X/DAY [facility] Last Admin: 11/06/20 08:33 Dose: 120 ml Documented by: Ondansetron HCl (Ondansetron 4 Mg/2 Ml Vial) 4 mg IV Q8H PRN PRN PRN Reason: NAUSEA/VOMITING Last Admin: 11/04/20 14:53 Dose: 4 mg Documented by: Oxycodone HCl (Oxycodone 5 Mg Tablet) 5 - 10 mg PO Q4H PRN PRN PRN Reason: Pain Score 4-10 Last Admin: 11/06/20 06:12 Dose: 10 mg Documented by: Senna/Docusate Sodium (Senna/Docusate Sodium 1 Tablet) 2 tablet PO BID [facility] Last Admin: 11/06/20 08:35 Dose: 2 tablet Documented by: Sodium Chloride (0.9% Saline Lock 10 Ml Syringe) 10 - 40 ml IV UD PRN PRN Reason: SALINE FLUSH Last Admin: 11/04/20 15:25 Dose: 10 ml Documented by: Zolpidem Tartrate (Zolpidem Tartrate 5 Mg Tablet) 5 mg PO QHS PRN PRN PRN Reason: INSOMNIA Discharge Diet: No Restrictions Weight Bearing Status: Weight bearing as tolerated Keep extremity elevated above heart level: Operative Extremity Call your doctor if you observe: Shortness of breath, Chest pain Home Medications: Medications to take at Discharge Acetaminophen [Tylenol] 1,000 mg PO Q6H PRN PRN 11/02/20 Aspirin E.C. [Ecotrin] 81 mg PO DAILY@0800 11/02/20 Apixaban [Eliquis] 2.5 mg PO BID #35 tablet 11/06/20 Insulin Glargine [Lantus SoloStar Pen] 10 units SC BID pen 11/06/20 Insulin Lispro [Humalog KwikPen] See Protocol SC ACHS insuln.pen 11/06/20 Oxycodone [Oxyir] 5 mg PO Q6H PRN 3 Days #12 tablet 11/06/20 Following Prescriptions Were Given to Patient: Apixaban [Eliquis] 2.5 mg PO BID #35 tablet Oxycodone [Oxyir] 5 mg PO Q6H PRN 3 Days #12 tablet PRN Reason: Pain Score 4-10 Prescription Printed Primary Care Physician: NOT,DEFINED [NON-STAFF] - Please Follow Up With: Alex Castañeda DO When: 2 weeks (or other orthopaedic physician) Please Follow Up With: [facility] When: Call [phone] for appointment Additional Instructions: Begin daily showering warm water antibacterial soap postop day #3( 72hrs Post-operatively) and then daily. Leave the dressing on for 72 hours postoperatively then may remove prior to first shower and change dressing daily after this until no drainage for 2 consecutive days then may leave open to air. Wear compression stockings, may remove at night. [place] should be removed 14 to 17 days postop start physical therapy as directed in hospital. Call Dr. Castañeda's office with any concerns. Disposition: [facility] facility Minutes spent on discharge:: 32 Patient Condition:: Fair Medical Necessity - Tobacco Use Smoking Status: Never smoker Meaningful Use Info Meaningful Use Diagnoses (Choose all that apply): None applicable Inpatient E&M: 01013 Disch Hosp
--- NOTE | 2020-11-06 10:54 | NURSING ---
Report called to nurse Dobson for pt transfer to [facility].
== END 2020-11-06 11:57 | disposition skilled nursing facility (03) | DRG 482 ==
LOC: ED 17:27 → MS3 17:59 → PCU 11-04 13:52
PROVIDERS: Orthopaedic Surgery; Admitting Provider Hospitalist; Emergency Provider Emergency Medicine
PROC: 0QS604Z Reposition Right Upper Femur with Internal Fixation Device, Open Approach (ICD-10-PCS; principal; 2020-11-03 14:00)
DX: S72.141A Displaced intertrochanteric fracture of right femur, initial encounter for closed fracture (principal); Z68.23 Body mass index [BMI] 23.0-23.9, adult; E11.65 Type 2 diabetes mellitus with hyperglycemia; T38.3X6A Underdosing of insulin and oral hypoglycemic [antidiabetic] drugs, initial encounter; I48.0 Paroxysmal atrial fibrillation; L27.1 Localized skin eruption due to drugs and medicaments taken internally; T46.1X5A Adverse effect of calcium-channel blockers, initial encounter; Y92.239 Unspecified place in hospital as the place of occurrence of the external cause; G20 Parkinson's disease; Z20.822 Contact with and (suspected) exposure to COVID-19; M19.90 Unspecified osteoarthritis, unspecified site; R29.6 Repeated falls; Z91.14 Patient's other noncompliance with medication regimen; W01.198A Fall on same level from slipping, tripping and stumbling with subsequent striking against other object, initial encounter; Y93.01 Activity, walking, marching and hiking; Y92.512 Supermarket, store or market as the place of occurrence of the external cause; Y99.9 Unspecified external cause status; Z79.82 Long term (current) use of aspirin; Z79.1 Long term (current) use of non-steroidal anti-inflammatories (NSAID)
CPT/HCPCS: 36415; 71045; 73502; 76000; 80048; 80053; 82962; 83036; 83880; 84443; 84484; 85025; 86850; 86900; 86901; 87426; 93005; 93306; 94762; 97110; 97116; 97162; 97166; 97530; 97802; 99251; 99285; C1713; C1776; J7030; J7040; J7120; Q9957; A4216; G0463; J2405